=== PATIENT | male | born 1960 | race African-American/Black ===

== ENCOUNTER 2018-12-03 09:30 | Inpatient (IN) | payer OTHER ==
[2018-12-03 11:38] VITALS: BMI 28.2
--- NOTE | 2018-12-03 12:46 | HP ---
"COWS - Scale Resting Pulse: 0= [place] 80 or Below Sweatin= Chills/Flushing Restless Observation: 1= Difficult to Sit Still Pupil Size: 0= Normal to Room Light Bone or Joint Aches: 2= Severe Diffuse Aches Runny Nose/ Eye Tearin= Runny Nose/Eyes GI Upset > 30mins: 2= Nausea/Diarrhea Tremor Observation: 0= None Yawning Observation: 0= None Anxiety or Irritability: 2=Irritable/Anxious Goose Flesh Skin: 0=Smooth Skin COWS Score: 10 CIWA Score Nausea/Vomitin-Mild Nausea/No Vomiting Muscle Tremors: None Anxiety: 2 Agitation: 2 Paroxysmal Sweats: 1-Minimal Palms Moist Orientation: 1-Uncertain about Date Tacttile Disturbances: 1-Very Mild Itch/Numbness Auditory Disturbances: 2-Mild Harshness/Frighten Visual Disturbances: 2-Mild Sensitivity Headache: 2-Mild CIWA-Ar Total Score: 14 - Admission Criteria OASAS Guidelines: Admission for Medically Managed Detox: Requires at least one of the followin. CIWA greater than 12 2. Seizures within the past 24 hours 3. Delirium tremens within the past 24 hours 4. Hallucinations within the past 24 hours 5. Acute intervention needed for co occurring medical disorder 6. Acute intervention needed for co occurring psychiatric disorder 7. Severe withdrawal that cannot be handled at a lower level of care (continued vomiting, continued diarrhea, abnormal vital signs) requiring intravenous medication and/or fluids 8. Admission ROS [facility] Allergies/Adverse Reactions: Allergies Allergy/AdvReac Type Severity Reaction Status Date / Time No Known Drug Allergies Allergy Verified 12/03/18 13:32 pork derived (porcine) AdvReac Severe Vomiting Verified 12/03/18 11:30 History of Present Illness: pt here requesting detox from etoh use , reports 1.5 pints-2 pints/day since 10 years ago , reports headache if not drinking, slight tremors and diarrhea, latest use this morning , current symptoms as above , most recent detox 1 mo ago @ [facility] , longest sobriety 2 months . cannabis- daily since age 12 cocaine - daily since age 17 , currently 2-3 gr/day via inhalation heroin : 6-7 bags via inhalation , first age of use 14 , latest use this morning , OD 1 mo ago , [place]arcan [place]standers [place] . tobacco : denies denies other illicits PMHX : hep C dx 1989 no tx PSHX : denies PSych : depression , denies IS / HI SHX : lives in alf , finances habit through SSI for , denies legal issues . This report was requested by: Evi Ferguson | Reference #: [id number] Others' Prescriptions Patient Name: Smith Dalton Date: 1960 Address: [place] [address] Sex: Male Rx Written Rx Dispensed Drug Quantity Days Supply Prescriber Name 03/28/2018 03/29/2018 chlordiazepoxide 25 mg capsule 8 2 Efra Gamez Exam Limitations: Clinical Condition - Ebola screening Have you traveled outside of the country in the last 21 days: No (N) Have you had contact with anyone from an Ebola affected area: No Do you have a fever: No - Review of Systems Constitutional: See HPI EENT: reports: See HPI Respiratory: reports: SOB with Exertion (h/o emphysema no inhalers) Cardiac: reports: No Symptoms Reported GI: reports: See HPI : reports: No Symptoms Reported Musculoskeletal: reports: See HPI Integumentary: reports: No Symptoms Reported Neuro: reports: See HPI, Headache Endocrine: reports: No Symptoms Reported Psychiatric: reports: Anxious, Depressed Patient History - Smoking Cessation Smoking history: Never smoked - Substances abused Heroin Substance route: Inhalation Frequency: Daily Amount used: 6-7 bags Age of first use: 14 Date of last use: 12/03/18 Alcohol Substance route: Oral Frequency: Daily Amount used: 1 pint and half, 2 x 6packs Age of first use: 17 Date of last use: 12/03/18 Marijuana/Hashish Substance route: Smoking Frequency: Daily Amount used: 2 bags Age of first use: 12 Date of last use: 12/03/18 Cocaine Substance route: Inhalation Frequency: Daily Amount used: $100 Age of first use: 17 Date of last use: 12/03/18 Family Disease History - Family Disease History Family History: Denies Admission Physical Exam BHS - Vital Signs Vital Signs: Vital Signs - 24 hr 12/03/18 11:31 Temperature 97 F L Pulse Rate 66 Respiratory 16 Rate Blood Pressure 130/88 - Physical General Appearance: Yes: Mild Distress, Anxious HEENTM: Yes: EOMI, Hearing grossly Normal, Normocephalic, Normal Voice, Other ( poor dentition, many missing teeth) Respiratory: Yes: Chest Non-Tender, Lungs Clear, Normal Breath Sounds, No Respiratory Distress, No Accessory Muscle Use Neck: Yes: No masses,lesions,Nodules, Trachea in good position Cardiology: Yes: Regular Rhythm, Regular Rate, S1, S2 Abdominal: Yes: Non Tender, Soft Back: Yes: Normal Inspection Musculoskeletal: Yes: Gait Steady Extremities: Yes: Normal Range of Motion, Non-Tender Neurological: Yes: Fully Oriented, Alert, Motor Strength 5/5 Integumentary: Yes: Warm - Diagnostic (1) Opioid use disorder Current Visit: Yes Status: Chronic (2) Alcohol use disorder Current Visit: Yes Status: Chronic (3) Cocaine dependence Current Visit: Yes Status: Chronic Qualifiers: Substance use status: uncomplicated Qualified Code(s): F14.20 - Cocaine dependence, uncomplicated (4) Cannabis dependence Current Visit: Yes Status: Chronic Breathalyzer - Breathalyzer Breathalyzer: 0 Urine Drug Screen - Test Device Lot number: [id number] Expiration date: 08/30/20 - Control Is test valid?: Yes - Results Drug screen NEGATIVE: No Urine drug screen results: THC-Marijuana, MARTHA-Cocaine, MOP-Opiates, BZO- Benzodiazepines Inpatient Rehab Admission - Rehab Decision to Admit Inpatient rehab admission?: No"
[2018-12-03] MEDS ORDERED: MAGNESIUM HYDROX 2400MG/30ML ORAL SUSPENSION 30 ML CUP PO PRN (13:12)
[2018-12-03] MEDS ORDERED: MAGNESIUM CITRATE 300 ML BOTTLE PO PRN (13:12)
[2018-12-03] MEDS ORDERED: hydrOXYzine PAMOATE 25 MG CAPSULE (FP) PO PRN (13:12)
[2018-12-03] MEDS ORDERED: MENTHOL/PHENOL 1 EACH UD MM PRN (13:12)
[2018-12-03] MEDS ORDERED: MAG HYDROX/AL HYDROX/SIMETH 30 ML UNIT-DOSE CUP PO PRN (13:12)
[2018-12-03] MEDS ORDERED: MELATONIN 5 MG TABLETS PO PRN (13:12)
[2018-12-03] MEDS ORDERED: IBUPROFEN 400 MG TABLET (FP) PO PRN (13:12)
[2018-12-03] MEDS ORDERED: BISMUTH SUBSALICYLATE 524 MG/30 ML UD PO PRN (13:12)
[2018-12-03] MEDS ORDERED: ACETAMINOPHEN 325 MG TABLET (FP) PO PRN ×2 (13:12)
[2018-12-03] MEDS ORDERED: cloNIDine HCL 0.1 MG TABLET PO PRN (13:14)
[2018-12-03] MEDS ORDERED: diazePAM 5 MG TABLET PO PRN (13:16)
[2018-12-03] MEDS ORDERED: METHADONE HCL 10 MG TABLET (FOR DETOX USE ONLY) PO ONE (14:00)
[2018-12-03] MEDS: diazePAM 5 MG TABLET PO SCH ×2 (14:34→22:17)
[2018-12-03] MEDS: THIAMINE HCL 100 MG TABLET (FP) PO SCH (22:17)
[2018-12-04] MEDS: diazePAM 5 MG TABLET PO SCH ×3 (05:14→22:07)
[2018-12-04] MEDS ORDERED: METHADONE HCL 5 MG TABLET (FOR DETOX USE ONLY) PO ONE (10:00)
--- NOTE | 2018-12-04 10:06 | EKG ---
Test Reason : Blood Pressure : / mmHG Vent. Rate : 056 BPM Atrial Rate : 056 BPM P-R Int : 180 ms QRS Dur : 092 ms QT Int : 442 ms P-R-T Axes : 064 040 042 degrees QTc Int : 426 ms SINUS BRADYCARDIA WITH SINUS ARRHYTHMIA OTHERWISE NORMAL ECG NO PREVIOUS ECGS AVAILABLE Confirmed by ROSA LYLES MD ([id number]) on 12/04/2018 10:06:05 AM Referred By: Confirmed By:ROSA LYLES MD
[2018-12-04] MEDS: PRENATAL VITAMINS W/ FOLIC ACID TABLET (FP) PO SCH (10:19)
[2018-12-04 12:22] LABS: HEMATOCRIT 39.9 % (35.4-49); MCHC 32.6 g/dl (32.0-35.9); MEAN PLT VOLUME 8.4 fl (7.5-11.1); PLATELET COUNT 241 K/MM3 (134-434); RBC 4.64 M/mm3 (4.00-5.60); RDW 14.6 % (11.9-15.9); WHITE BLOOD COUNT 5.1 K/mm3 (4.0-10.0)
[2018-12-04 12:27] LABS: ALBUMIN 3.8 g/dl (3.4-5.0); BILIRUBIN,TOTAL 0.4 mg/dL (0.2-1); BLOOD UREA NITROGEN 16.7 mg/dL (7-18); CALCIUM 9.2 mg/dL (8.5-10.1); CREATININE 0.9 mg/dL (0.55-1.3); POTASSIUM 4.4 mmol/L (3.5-5.1); TOT PROT 7.4 g/dl (6.4-8.2)
--- NOTE | 2018-12-04 14:26 | PN ---
S CIWA - CIWA Score Nausea/Vomitin-Mild Nausea/No Vomiting Muscle Tremors: 4-Moderate,w/Arms Extend Anxiety: 3 Agitation: 2 Paroxysmal Sweats: 2 Orientation: 0-Oriented Tacttile Disturbances: 0-None Auditory Disturbances: 0-None Visual Disturbances: 0-None Headache: 0-None Present CIWA-Ar Total Score: 12 S COWS - Scale Resting Pulse: 0= [place] 80 or Below Sweatin= Chills/Flushing Restless Observation: 0= Sits Still Pupil Size: 0= Normal to Room Light Bone or Joint Aches: 1= Mild Discomfort Runny Nose/ Eye Tearin= Nasal Congestion GI Upset > 30mins: 2= Nausea/Diarrhea Tremor Observation of Outstretched Hands: 2= Slight Tremor Visible Yawning Observation: 2= >3x During Session Anxiety or Irritability: 2=Irritable/Anxious Goose Flesh Skin: 0=Smooth Skin COWS Score: 11 S Progress Note (SOAP) Subjective: 58 years old male 1st admission since 2015 was admitted on 12/03/18 for alcohol and opiate withdrawal sx management doing well with valium and methadone detox regimen ate breakfast and lunch no trouble chewing and swallowing Objective: 12/04/18 14:30 Vital Signs Temperature 98.6 F 12/04/18 13:24 Pulse Rate 60 12/04/18 13:24 Respiratory Rate 20 12/04/18 13:24 Blood Pressure 101/70 12/04/18 13:24 O2 Sat by Pulse Oximetry (%) Laboratory Last Values WBC 5.1 K/mm3 (4.0-10.0) 12/04/18 09:30 RBC 4.64 M/mm3 (4.00-5.60) 12/04/18 09:30 Hgb 13.0 GM/dL (11.7-16.9) 12/04/18 09:30 Hct 39.9 % (35.4-49) 12/04/18 09:30 MCV 86.0 fl (80-96) 12/04/18 09:30 MCH 28.0 pg (25.7-33.7) 12/04/18 09:30 MCHC 32.6 g/dl (32.0-35.9) 12/04/18 09:30 RDW 14.6 % (11.9-15.9) 12/04/18 09:30 Plt Count 241 K/MM3 (134-434) 12/04/18 09:30 MPV 8.4 fl (7.5-11.1) 12/04/18 09:30 Sodium 136 mmol/L (136-145) 12/04/18 09:30 Potassium 4.4 mmol/L (3.5-5.1) 12/04/18 09:30 Chloride 100 mmol/L (98-107) 12/04/18 09:30 Carbon Dioxide 32 mmol/L (21-32) 12/04/18 09:30 Anion Gap 5 MMOL/L (8-16) L 12/04/18 09:30 BUN 16.7 mg/dL (7-18) 12/04/18 09:30 Creatinine 0.9 mg/dL (0.55-1.3) 12/04/18 09:30 Est GFR (CKD-EPI)AfAm 109.50 12/04/18 09:30 Est GFR (CKD-EPI)NonAf 94.48 12/04/18 09:30 Random Glucose 66 mg/dL (74-106) L 12/04/18 09:30 Calcium 9.2 mg/dL (8.5-10.1) 12/04/18 09:30 Total Bilirubin 0.4 mg/dL (0.2-1) 12/04/18 09:30 AST 59 U/L (15-37) H 12/04/18 09:30 ALT 75 U/L (13-61) H 12/04/18 09:30 Alkaline Phosphatase 65 U/L (45-117) 12/04/18 09:30 Total Protein 7.4 g/dl (6.4-8.2) 12/04/18 09:30 Albumin 3.8 g/dl (3.4-5.0) 12/04/18 09:30 RPR Titer Nonreactive (NONREACTIVE) 12/04/18 09:30 lab noted Assessment: 12/04/18 14:31 alcohol and opiate withdrawal sx alert oriented x 3 had diarrhea encourage oral fluid Plan: continue valium and methadone detox regimen
--- NOTE | 2018-12-04 16:46 | CONSULT ---
[facility] Psychiatric Consult - Data Date of interview: 12/04/18 Admission source: [facility] Identifying data: Readmission to [facility] for this 58 y/o AA male self- referred for detoxification (cocaine, heroin, cannabis, alcohol). Interviewed at [address] [place] [address]. Patient is single, no dependents, homeless, unemployed and supported on SSI benefits. Substance Abuse History: Discussed with patient. Confirmed substance use as reported in the following document : Smoking history: Never smoked. Substances abused. Heroin. Substance route: Inhalation. Frequency: Daily. Amount used: 6-7 bags. Age of first use: 14. Date of last use: 12/03/18. Alcohol. Substance route: Oral. Frequency: Daily. Amount used: 1 pint and half, 2 x 6packs. Age of first use: 17. Date of last use: 12/03/18. Marijuana/Hashish. Substance route: Smoking. Frequency: Daily. Amount used: 2 bags. Age of first use: 12. Date of last use: 12/03/18. Cocaine. Substance route: Inhalation. Frequency: Daily. Amount used: $100. Age of first use: 17. Date of last use: 12/03/18 Medical History: Medical profile is remarkable for hepatitis C, COPD and emphysema. Psychiatric History: No reported history of psychiatric hospitalizations. Patient indicates that he has been diagnosed in the past with MDD. Was prescribed seroquel and lurazidone. Mr Dalton has reportedly dropped out of psychiatric [facility] care for months. Has taken self off medications. Patient denies history of suicide attempts. Physical/Sexual Abuse/Trauma History: Patient denies. Additional Comment: Urine drug screen results: THC-Marijuana, MARTHA-Cocaine, MOP- Opiates, BZO-Benzodiazepines. Noted. Mental Status Exam - Mental Status Exam Alert and Oriented to: Time, Place, Person Cognitive Function: Good Patient Appearance: Well Groomed Mood: Nervous, Withdrawn Affect: Mood Congruent, Constricted Patient Behavior: Fatigued, Appropriate, Cooperative Speech Pattern: Clear Voice Loudness: Normal Thought Process: Goal Oriented Thought Disorder: Not Present Hallucinations: Denies Suicidal Ideation: Denies Homicidal Ideation: Denies Insight/Judgement: Poor Sleep: Well Appetite: Good Muscle strength/Tone: Normal Gait/Station: Normal Psychiatric Findings - Problem List ([place] 1, 2,3) (1) Alcohol use disorder Current Visit: Yes Status: Chronic (2) Opioid use disorder Current Visit: Yes Status: Chronic (3) Cannabis dependence Current Visit: Yes Status: Chronic (4) Cocaine dependence Current Visit: Yes Status: Chronic Qualifiers: Substance use status: uncomplicated Qualified Code(s): F14.20 - Cocaine dependence, uncomplicated (5) Substance induced mood disorder Current Visit: Yes Status: Chronic (6) Non-compliance Current Visit: Yes Status: Chronic Comment: Dropped out of OPD care. - Initial Treatment Plan Initial Treatment Plan: Psychoeducation. Sleep hygiene. Support. Detoxification. AA/NA meetings. Groups. Observation.
[2018-12-04] MEDS: THIAMINE HCL 100 MG TABLET (FP) PO SCH (22:07)
[2018-12-05] MEDS: diazePAM 5 MG TABLET PO SCH ×2 (05:45→17:02)
[2018-12-05] MEDS ORDERED: METHADONE HCL 10 MG TABLET (FOR DETOX USE ONLY) PO ONE (10:00)
[2018-12-05] MEDS: PRENATAL VITAMINS W/ FOLIC ACID TABLET (FP) PO SCH (10:06)
--- NOTE | 2018-12-05 17:30 | PN ---
[facility] CIWA - CIWA Score Nausea/Vomitin-No Nausea/No Vomiting Muscle Tremors: None Anxiety: 4-Mod. Anxious/Guarded Agitation: 0-Normal Activity Paroxysmal Sweats: No Perspiration Orientation: 0-Oriented Tacttile Disturbances: 0-None Auditory Disturbances: 0-None Visual Disturbances: 0-None Headache: 0-None Present CIWA-Ar Total Score: 4 S COWS - Scale Resting Pulse: 0= [place] 80 or Below Sweatin= No chills or Flushing Restless Observation: 0= Sits Still Pupil Size: 0= Normal to Room Light Bone or Joint Aches: 0= None Runny Nose/ Eye Tearin= None GI Upset > 30mins: 0= None Tremor Observation of Outstretched Hands: 0= None Yawning Observation: 0= None Anxiety or Irritability: 2=Irritable/Anxious Goose Flesh Skin: 0=Smooth Skin COWS Score: 2 S Progress Note (SOAP) Subjective: Patient anxious about Discharge Planning and aftercare. Patient denies any other current Withdrawal symptoms. Objective: PATIENT A & O X 3. IN NO ACUTE DISTRESS. 12/05/18 17:27 Vital Signs Temperature 98.2 F 12/05/18 13:49 Pulse Rate 55 L 12/05/18 13:49 Respiratory Rate 18 12/05/18 13:49 Blood Pressure 116/79 12/05/18 13:49 O2 Sat by Pulse Oximetry (%) Laboratory Tests 12/03/18 12/04/18 12/04/18 13:30 09:30 09:30 WBC 5.1 RBC 4.64 Hgb 13.0 Hct 39.9 MCV 86.0 MCH 28.0 MCHC 32.6 RDW 14.6 Plt Count 241 MPV 8.4 Sodium 136 Potassium 4.4 Chloride 100 Carbon Dioxide 32 Anion Gap 5 L BUN 16.7 Creatinine 0.9 Est GFR (CKD-EPI)AfAm 109.50 Est GFR (CKD-EPI)NonAf 94.48 Random Glucose 66 L Calcium 9.2 Total Bilirubin 0.4 AST 59 H ALT 75 H Alkaline Phosphatase 65 Total Protein 7.4 Albumin 3.8 RPR Titer TB (QFT) Incubation TB Test (QFT) Nil 0.02 TB Test (QFT) Mitogen >10.00 TB Test (QFT) Antigen 0.13 TB Test (QFT) Negative TB Positive Criteria 12/04/18 09:30 WBC RBC Hgb Hct MCV MCH MCHC RDW Plt Count MPV Sodium Potassium Chloride Carbon Dioxide Anion Gap BUN Creatinine Est GFR (CKD-EPI)AfAm Est GFR (CKD-EPI)NonAf Random Glucose Calcium Total Bilirubin AST ALT Alkaline Phosphatase Total Protein Albumin RPR Titer Nonreactive TB (QFT) Incubation TB Test (QFT) Nil TB Test (QFT) Mitogen TB Test (QFT) Antigen TB Test (QFT) TB Positive Criteria LABS NOTED. Assessment: 12/05/18 17:27 WITHDRAWAL SYMPTOMS. ELEVATED AST LEVEL. ELEVATED ALT LEVEL. 12/05/18 17:28 Plan: CONTINUE DETOX. PATIENT ADVISED TO CONSULT DETOX UNIT [employer] REGARDING AFTERCARE PLANNING. PATIENT VERBALIZED UNDERSTANDING OF RECOMMENDATION. PATIENT SCHEDULED FOR D/C FROM DETOX UNIT TOMORROW.
[2018-12-05] MEDS: THIAMINE HCL 100 MG TABLET (FP) PO SCH (21:31)
[2018-12-06] MEDS ORDERED: METHADONE HCL 5 MG TABLET (FOR DETOX USE ONLY) PO ONE (06:00)
[2018-12-06] MEDS ORDERED: diazePAM 5 MG TABLET PO ONE (06:00)
[2018-12-06 09:03] VITALS: BP 134/68; PULSE 80; TEMP 96.9
[2018-12-06] MEDS: PRENATAL VITAMINS W/ FOLIC ACID TABLET (FP) PO SCH (09:08)
--- NOTE | 2018-12-06 17:31 | DS ---
[facility] Detox Discharge Summary Admission Date: 12/03/18 Discharge Date: 12/06/18 - History Present History: Alcohol Dependence, Cannabis Dependence, Cocaine Dependence, Opioid Dependence Additional Comments: PATIENT GOING TO [facility] ([place], [place]) FOR AFTERCARE. PATIENT WAS DISCHARGED FROM DETOX UNIT IN STABLE MEDICAL CONDITION. Pertinent Past History: Depression, Hep C, Elevated AST Level, Elevated ALT Level. - Physical Exam Results Vital Signs: Vital Signs Temperature 96.9 F L 12/06/18 09:03 Pulse Rate 80 12/06/18 09:03 Respiratory Rate 18 12/06/18 09:03 Blood Pressure 134/68 12/06/18 09:03 O2 Sat by Pulse Oximetry (%) Pertinent Admission Physical Exam Findings: WITHDRAWAL SYMPTOMS. Laboratory Tests 12/03/18 12/04/18 12/04/18 13:30 09:30 09:30 WBC 5.1 RBC 4.64 Hgb 13.0 Hct 39.9 MCV 86.0 MCH 28.0 MCHC 32.6 RDW 14.6 Plt Count 241 MPV 8.4 Sodium 136 Potassium 4.4 Chloride 100 Carbon Dioxide 32 Anion Gap 5 L BUN 16.7 Creatinine 0.9 Est GFR (CKD-EPI)AfAm 109.50 Est GFR (CKD-EPI)NonAf 94.48 Random Glucose 66 L Calcium 9.2 Total Bilirubin 0.4 AST 59 H ALT 75 H Alkaline Phosphatase 65 Total Protein 7.4 Albumin 3.8 RPR Titer TB (QFT) Incubation TB Test (QFT) Nil 0.02 TB Test (QFT) Mitogen >10.00 TB Test (QFT) Antigen 0.13 TB Test (QFT) Negative TB Positive Criteria 12/04/18 09:30 WBC RBC Hgb Hct MCV MCH MCHC RDW Plt Count MPV Sodium Potassium Chloride Carbon Dioxide Anion Gap BUN Creatinine Est GFR (CKD-EPI)AfAm Est GFR (CKD-EPI)NonAf Random Glucose Calcium Total Bilirubin AST ALT Alkaline Phosphatase Total Protein Albumin RPR Titer Nonreactive TB (QFT) Incubation TB Test (QFT) Nil TB Test (QFT) Mitogen TB Test (QFT) Antigen TB Test (QFT) TB Positive Criteria LABS NOTED. - Treatment Hospital Course: Detox Protocol Followed, Detoxed Safely, Responded well, Discharged Condition Good, Rehab Referral Accepted Patient has Accepted a Rehab Referral to: [facility] ([place], [place]). - Medication Discharge Medications: Ambulatory Orders NK [No Known Home Medication] 12/03/18 - Diagnosis (1) Alcohol use disorder Status: Acute (2) Cannabis dependence Status: Acute (3) Cocaine dependence Status: Acute Qualifiers: Substance use status: uncomplicated Qualified Code(s): F14.20 - Cocaine dependence, uncomplicated (4) Non-compliance Status: Chronic (5) Opioid use disorder Status: Chronic (6) Substance induced mood disorder Status: Chronic - AMA Did Patient Leave Against Medical Advice: No COWS - Scale Resting Pulse: 0= [place] 80 or Below Sweatin= No chills or Flushing Restless Observation: 1= Difficult to Sit Still Pupil Size: 0= Normal to Room Light Bone or Joint Aches: 1= Mild Discomfort Runny Nose/ Eye Tearin= None GI Upset > 30mins: 0= None Tremor Observation: 0= None Yawning Observation: 1= 1-2x During Session Anxiety or Irritability: 2=Irritable/Anxious Goose Flesh Skin: 0=Smooth Skin COWS Score: 5 S CIWA - CIWA Score Nausea/Vomitin-No Nausea/No Vomiting Muscle Tremors: None Anxiety: 2 Agitation: 1-Slight > Activity Paroxysmal Sweats: No Perspiration Orientation: 0-Oriented Tacttile Disturbances: 0-None Auditory Disturbances: 0-None Visual Disturbances: 0-None Headache: 0-None Present CIWA-Ar Total Score: 3
== END 2018-12-06 09:05 | disposition home or self-care (01) | DRG 773 ==
LOC: YASAS 09:30 → Y3N 13:29
PROVIDERS: ADMIT Surgery; ATTEND Surgery
PROC: HZ2ZZZZ Detoxification Services for Substance Abuse Treatment (ICD-10-PCS; principal; 2018-12-03)
DX: F11.23 Opioid dependence with withdrawal (principal); F10.230 Alcohol dependence with withdrawal, uncomplicated; F14.20 Cocaine dependence, uncomplicated; F12.20 Cannabis dependence, uncomplicated; F19.24 Other psychoactive substance dependence with psychoactive substance-induced mood disorder; R74.0 Nonspecific elevation of levels of transaminase and lactic acid dehydrogenase [LDH]; J43.9 Emphysema, unspecified; Z91.19 Patient's noncompliance with other medical treatment and regimen; Z59.0 Homelessness
CPT/HCPCS: 36415; 80053; 85027; 86480; 86593; 93005; 93010

== ENCOUNTER 2019-04-04 14:47 | Inpatient (IN) | payer OTHER ==
[2019-04-04 15:57] VITALS: BMI 23.7
--- NOTE | 2019-04-04 17:39 | HP ---
COWS - Scale Resting Pulse: 0= [place] 80 or Below Sweatin= Beads of Sweat on Face Restless Observation: 0= Sits Still Pupil Size: 0= Normal to Room Light Bone or Joint Aches: 4=Acute Joint/Muscle Pain Runny Nose/ Eye Tearin= Runny Nose/Eyes GI Upset > 30mins: 0= None Tremor Observation: 0= None Yawning Observation: 2= >3x During Session Anxiety or Irritability: 2=Irritable/Anxious Goose Flesh Skin: 3=Piloerection COWS Score: 16 CIWA Score Nausea/Vomitin-No Nausea/No Vomiting Muscle Tremors: None Anxiety: 0-No Anxiety, at Ease Agitation: 4-Moderately Restless (irritbale) Paroxysmal Sweats: 4-Forehead w/Sweat Beads Orientation: 3-Disoriented Date>2 days Tacttile Disturbances: 0-None Auditory Disturbances: 0-None Visual Disturbances: 3-Moderate Sensitivity (lights) Headache: 3-Moderate CIWA-Ar Total Score: 17 - Admission Criteria OASAS Guidelines: Admission for Medically Managed Detox: Requires at least one of the followin. CIWA greater than 12 2. Seizures within the past 24 hours 3. Delirium tremens within the past 24 hours 4. Hallucinations within the past 24 hours 5. Acute intervention needed for co occurring medical disorder 6. Acute intervention needed for co occurring psychiatric disorder 7. Severe withdrawal that cannot be handled at a lower level of care (continued vomiting, continued diarrhea, abnormal vital signs) requiring intravenous medication and/or fluids 8. Patient presents the following: CIWA greater than 12 Admission Criteria Met: Admission criteria met Admitting History and Physical - Smoking History Smoking history: Never smoked Have you smoked in the past 12 months: No Admission ROS S - HPI Chief Complaint: here for alcohol and heroin detox. Allergies/Adverse Reactions: Allergies Allergy/AdvReac Type Severity Reaction Status Date / Time No Known Drug Allergies Allergy Verified 04/04/19 15:49 pork derived (porcine) AdvReac Severe Vomiting Verified 04/04/19 15:49 History of Present Illness: HERE FOR ALCOHOL HEROIN DETOX. CLIENT WAS REFERRED BY [facility] AFTER PRESENTING THERE FOR C/O FEELING DEPRESSED. DENIES SI/HI.DC PAPERS REVIEWED CLIENT WAS CLEARED BY PSYCH. IT IS NOTED FOR CLIENT TO CONT TO TAKE LITHIUM 300MG AND SEROQUEL 300MG. CLIENT REPORTS HE IS NON COMPLAINT. HE ALSO WAS AT [facility] FOR DETOX AND THEN REHAB 2 WEEKS AGO WHERE HE WAS STARTED ON STABILIZATION WITH METHADONE 20 MG. LDM 04/01 VERIFIED BY DIVERSIFIED [employer] WITH NURSE SABA FROM [facility]. CLIENT AMA FROM REHAB AND WAS NOT CONNECTED TO A PROGRAM. HE REPORTS RELAPSING RIGHT AFTER DC. USING HEROIN DAILY APPROX 10 BAGS VIA NASAL.LAST USE 1 DAY AGO. HE REPORTS DRINKING ABOUT 1 PINT AND A HALF DAILY WELL. 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 HX/O DRUG OVERDOSE X 3 LAST EPISODE 3 MONTHS AGO. DENIES HX/O SZ AND BLACK OUTS. DENIES ANY SIGNIFICANT PERIOD OF CLEAN TIME. HOMELESS, UNEMPLOYED, DENIES LEGALS Exam Limitations: No Limitations - Ebola screening Have you traveled outside of the country in the last 21 days: No Have you had contact with anyone from an Ebola affected area: No Have you been sick,other than usual withdrawal symptoms: No Do you have a fever: No - Review of Systems Constitutional: Chills, Malaise, Night Sweats, Changes in sleep, Unintentional Wgt. Loss EENT: reports: Dental Problems (MISSING TEETH) Respiratory: reports: Shortness of Breath (EMPHYSEMA) Cardiac: reports: No Symptoms Reported GI: reports: Poor Fluid Intake, Abdominal cramping : reports: Other (SLOW STREAM) Musculoskeletal: reports: Back Pain, Joint Pain Integumentary: reports: Sweating, Other (GOOS BUMPS) Neuro: reports: Headache, Dizziness Endocrine: reports: No Symptoms Reported Hematology: reports: No Symptoms Reported Psychiatric: reports: Orientated x3, Agitated (IRRITABLE), Anxious, Depressed ( DENIES SI) Other Systems: Reviewed and Negative Patient History - Patient Medical History Hx Anemia: No Hx Asthma: No Hx Chronic Obstructive Pulmonary Disease (COPD): Yes (EPHYSEMA) Hx Cancer: No Hx Cardiac Disorders: No Hx Congestive Heart Failure: No Hx Hypertension: No Hx Hypercholesterolemia: No Hx Pacemaker: No HX Cerebrovascular Accident: No Hx Seizures: No Hx Dementia: No Hx Diabetes: No Hx Gastrointestinal Disorders: No Hx Liver Disease: No Hx Genitourinary Disorders: No Hx Sexually Transmitted Disorders: No Hx Renal Disease (ESRD): No Hx Thyroid Disease: No Hx Human Immunodeficiency Virus (HIV): No Hx Hepatitis C: Yes (NO TXMENT) Hx Depression: Yes (NON COMPLIANT WITH MEDS) Hx Suicide Attempt: No Hx Bipolar Disorder: Yes Hx Schizophrenia: No Other Medical History: DENIES - Patient Surgical History Past Surgical History: Yes Other Surgical History: CRACKED SKULL REPAIR Anesthesia Reaction: No - PPD History Previous Implant?: Yes (TB GOLD 12/19 NEGATIVE) Documented Results: Negative w/proof PPD to be Administered?: No - Smoking Cessation Smoking history: Never smoked Have you smoked in the past 12 months: No Hx Chewing Tobacco Use: No Initiated information on smoking cessation: No - Substance & Tx. History Hx Alcohol Use: Yes Hx Substance Use: Yes Substance Use Type: Alcohol, Cocaine, Heroin Hx Substance Use Treatment: Yes ([facility]) - Substances abused Heroin Substance route: Inhalation Frequency: Daily Amount used: 10 BAGS Age of first use: 14 Date of last use: 04/02/19 Alcohol Substance route: Oral Frequency: Daily Amount used: 1 pint and half BACARDI, 2 x 6packs Age of first use: 17 Date of last use: 04/02/19 Marijuana/Hashish Substance route: Smoking Frequency: Daily Amount used: 2 bags Age of first use: 12 Date of last use: 04/02/19 Cocaine Substance route: Inhalation Frequency: Daily Amount used: $400/ 4 GRAMS Age of first use: 17 Date of last use: 04/02/19 Admission Physical Exam S - Vital Signs Vital Signs: Vital Signs - 24 hr 04/04/19 15:49 Temperature 98.2 F Pulse Rate 68 Respiratory 17 Rate Blood Pressure 110/71 - Physical General Appearance: Yes: Moderate Distress, Irritable, Anxious HEENTM: Yes: EOMI, Normocephalic, Normal Voice, CHRIS, Pharynx Normal, Rhinorrhea , Other (MISSING MOST OF HIS TEETH) Respiratory: Yes: Chest Non-Tender, Lungs Clear, Normal Breath Sounds, No Respiratory Distress, No Accessory Muscle Use Neck: Yes: No masses,lesions,Nodules, Supple, Trachea in good position Breast: Yes: Breasts Symetrical, Surgical Scar (RIGHT) Cardiology: Yes: Regular Rhythm, Regular Rate, S1, S2 Abdominal: Yes: Non Tender, Soft, Increased Bowel Sounds Genitourinary: Yes: Other (REPORTED SLOW STREAM) Back: Yes: Other (MULTIPLE SCRATCHES NOTED TO UPPER BACK) Musculoskeletal: Yes: Joint Stiffness (2/2 PAIN) Extremities: Yes: Normal Capillary Refill, Normal Inspection, Non-Tender, Other (LROM 2/2 PAIN) Neurological: Yes: Alert, Motor Strength 5/5, Confused (ABOUT DATE), Depressed Affect Integumentary: Yes: Clammy, Other (PILORECTION) Lymphatic: Yes: Within Normal Limits - Diagnostic (1) Alcohol dependence with withdrawal, uncomplicated Current Visit: Yes Status: Acute (2) Opioid dependence with withdrawal Current Visit: Yes Status: Acute (3) Cocaine dependence, uncomplicated Current Visit: Yes Status: Acute (4) Cannabis dependence, uncomplicated Current Visit: Yes Status: Acute (5) Homeless Current Visit: Yes Status: Suspected (6) Emphysema lung Current Visit: Yes Status: Chronic Qualifiers: Emphysema type: unspecified Qualified Code(s): J43.9 - Emphysema, unspecified (7) HCV (hepatitis C virus) Current Visit: Yes Status: Chronic Qualifiers: Viral hepatitis chronicity: chronic (8) Depressed affect Current Visit: Yes Status: Acute (9) Non-compliance Current Visit: Yes Status: Chronic Comment: Dropped out of OPD care./ NON COMPLIANT WITH MEDICATION (10) Substance induced mood disorder Current Visit: Yes Status: Suspected Comment: DEPRESSION/ BIPOLAR Cleared for Admission S - Detox or Rehab [facility] Level of Care: Medically Managed Detox Regimen/Protocol: Methadone/Librium Claeared for Rehab Admission: No Breathalyzer - Breathalyzer Breathalyzer: 0 Urine Drug Screen - Test Device Lot number: [id number] Expiration date: 10/30/20 - Control Is test valid?: Yes - Results Drug screen NEGATIVE: No Urine drug screen results: THC-Marijuana, MARTHA-Cocaine, FEN-Fentanyl, MOP-Opiates , MTD-Methadone, BZO-Benzodiazepines Inpatient Rehab Admission - Rehab Decision to Admit Inpatient rehab admission?: No
[2019-04-04] MEDS ORDERED: chlordiazePOXIDE HCL 10 MG CAPSULE PO PRN (17:47)
[2019-04-04] MEDS ORDERED: P-EPHED 60MG/TRIPROLIDI 2.5MG TABLET PO PRN (17:47)
[2019-04-04] MEDS ORDERED: METHADONE HCL 10 MG TABLET (FOR DETOX USE ONLY) PO ONE (17:47)
[2019-04-04] MEDS ORDERED: BISMUTH SUBSALICYLATE 524 MG/30 ML UD PO PRN (17:47)
[2019-04-04] MEDS ORDERED: IBUPROFEN 400 MG TABLET (FP) PO PRN (17:47)
[2019-04-04] MEDS ORDERED: MENTHOL/PHENOL 1 EACH UD MM PRN (17:47)
[2019-04-04] MEDS ORDERED: ONDANSETRON *ODT* 4 MG TABLET SL PRN (17:47)
[2019-04-04] MEDS ORDERED: NALOXONE HCL 0.4 MG/ML VIAL IM PRN (17:47)
[2019-04-04] MEDS ORDERED: MAGNESIUM HYDROX 2400MG/30ML ORAL SUSPENSION 30 ML CUP PO PRN (17:47)
[2019-04-04] MEDS ORDERED: DICYCLOMINE HCL 10 MG CAPSULE PO PRN (17:47)
[2019-04-04] MEDS ORDERED: hydrOXYzine PAMOATE 25 MG CAPSULE (FP) PO PRN (17:47)
[2019-04-04] MEDS ORDERED: guaiFENesin 200 MG/10 ML 10 ML UNIT-DOSE CUPS PO PRN (17:47)
[2019-04-04] MEDS ORDERED: cloNIDine HCL 0.1 MG TABLET PO PRN (17:47)
[2019-04-04] MEDS ORDERED: MAGNESIUM CITRATE 300 ML BOTTLE PO PRN (17:47)
[2019-04-04] MEDS ORDERED: MAG HYDROX/AL HYDROX/SIMETH 30 ML UNIT-DOSE CUP PO PRN (17:47)
[2019-04-04] MEDS ORDERED: ACETAMINOPHEN 325 MG TABLET (FP) PO PRN ×2 (17:47)
[2019-04-04] MEDS: chlordiazePOXIDE HCL 25 MG CAPSULE PO SCH (22:34)
[2019-04-04] MEDS: THIAMINE HCL 100 MG TABLET (FP) PO SCH (22:34)
[2019-04-04] MEDS: MELATONIN 5 MG TABLETS PO PRN (22:36)
[2019-04-04] MEDS: METHOCARBAMOL 500 MG TABLET PO PRN (22:36)
[2019-04-05] MEDS: chlordiazePOXIDE HCL 25 MG CAPSULE PO SCH ×3 (05:09→22:36)
[2019-04-05] MEDS ORDERED: METHADONE HCL 10 MG TABLET (FOR DETOX USE ONLY) ONE (09:18)
[2019-04-05] MEDS ORDERED: METHADONE HCL 5 MG TABLET (FOR DETOX USE ONLY) ONE (09:19)
[2019-04-05 09:56] LABS: HEMATOCRIT 36.2 % (35.4-49); HEMOGLOBIN 11.8 GM/dL (11.7-16.9); MCH 27.9 pg (25.7-33.7); MCHC 32.7 g/dl (32.0-35.9); MEAN CELL VOLUME 85.4 fl (80-96); MEAN PLT VOLUME 8.3 fl (7.5-11.1); PLATELET COUNT 324 K/MM3 (134-434); RBC 4.24 M/mm3 (4.00-5.60); RDW 13.1 % (11.9-15.9); WHITE BLOOD COUNT 6.7 K/mm3 (4.0-10.0)
[2019-04-05] MEDS ORDERED: METHADONE (DETOX) 20 MG, METHADONE (DETOX) 5 MG PO ONE (10:00)
[2019-04-05 10:08] LABS: BILIRUBIN,TOTAL 0.3 mg/dL (0.2-1); BLOOD UREA NITROGEN 14.5 mg/dL (7-18); CALCIUM 8.2 mg/dL (8.5-10.1); CREATININE 0.8 mg/dL (0.55-1.3); POTASSIUM 3.5 mmol/L (3.5-5.1); TOT PROT 6.4 g/dl (6.4-8.2)
--- NOTE | 2019-04-05 10:20 | PN ---
S CIWA - CIWA Score Nausea/Vomitin-No Nausea/No Vomiting Muscle Tremors: 2 Anxiety: 3 Agitation: 2 Paroxysmal Sweats: 3 Orientation: 0-Oriented Tacttile Disturbances: 0-None Auditory Disturbances: 0-None Visual Disturbances: 0-None Headache: 2-Mild CIWA-Ar Total Score: 12 BHS COWS - Scale Resting Pulse: 0= [place] 80 or Below Sweatin= Beads of Sweat on Face Restless Observation: 1= Difficult to Sit Still Pupil Size: 0= Normal to Room Light Bone or Joint Aches: 2= Severe Diffuse Aches Runny Nose/ Eye Tearin= None GI Upset > 30mins: 0= None Tremor Observation of Outstretched Hands: 2= Slight Tremor Visible Yawning Observation: 1= 1-2x During Session Anxiety or Irritability: 2=Irritable/Anxious Goose Flesh Skin: 0=Smooth Skin COWS Score: 11 S Progress Note (SOAP) Subjective: c/o sweats, anxiety, chills, muscle aches, and headache. Objective: 04/05/19 10:17 Vital Signs 04/05/19 04/05/19 05:55 09:07 Temperature 97.5 F L 97.7 F Pulse Rate 55 L 70 Respiratory 18 20 Rate Blood Pressure 93/61 93/61 Laboratory Last Values WBC 6.7 K/mm3 (4.0-10.0) 04/05/19 07:20 RBC 4.24 M/mm3 (4.00-5.60) 04/05/19 07:20 Hgb 11.8 GM/dL (11.7-16.9) 04/05/19 07:20 Hct 36.2 % (35.4-49) 04/05/19 07:20 MCV 85.4 fl (80-96) 04/05/19 07:20 MCH 27.9 pg (25.7-33.7) 04/05/19 07:20 MCHC 32.7 g/dl (32.0-35.9) 04/05/19 07:20 RDW 13.1 % (11.9-15.9) D 04/05/19 07:20 Plt Count 324 K/MM3 (134-434) D 04/05/19 07:20 MPV 8.3 fl (7.5-11.1) 04/05/19 07:20 Sodium 141 mmol/L (136-145) 04/05/19 07:20 Potassium 3.5 mmol/L (3.5-5.1) 04/05/19 07:20 Chloride 104 mmol/L (98-107) 04/05/19 07:20 Carbon Dioxide 30 mmol/L (21-32) 04/05/19 07:20 Anion Gap 7 MMOL/L (8-16) L 04/05/19 07:20 BUN 14.5 mg/dL (7-18) 04/05/19 07:20 Creatinine 0.8 mg/dL (0.55-1.3) 04/05/19 07:20 Est GFR (CKD-EPI)AfAm 114.93 04/05/19 07:20 Est GFR (CKD-EPI)NonAf 99.16 04/05/19 07:20 Random Glucose 74 mg/dL (74-106) 04/05/19 07:20 Calcium 8.2 mg/dL (8.5-10.1) L 04/05/19 07:20 Total Bilirubin 0.3 mg/dL (0.2-1) 04/05/19 07:20 AST 92 U/L (15-37) H 04/05/19 07:20 ALT 58 U/L (13-61) 04/05/19 07:20 Alkaline Phosphatase 51 U/L (45-117) 04/05/19 07:20 Total Protein 6.4 g/dl (6.4-8.2) 04/05/19 07:20 Albumin 3.0 g/dl (3.4-5.0) L 04/05/19 07:20 Labs noted with elevated AST. 04/05/19 10:18 Assessment: 04/05/19 10:19 AOX3, in no acute respiratory distress. Full ROM, ambulating in the unit. Withdrawal symptoms. Elevated AST. Plan: continue detox. Increase fluids.
[2019-04-05] MEDS: PRENATAL VITAMINS W/ FOLIC ACID TABLET (FP) PO SCH (10:41)
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
[2019-04-05] MEDS: THIAMINE HCL 100 MG TABLET (FP) PO SCH (22:36)
--- NOTE | 2019-04-05 23:25 | EKG ---
Test Reason : Blood Pressure : / mmHG Vent. Rate : 058 BPM Atrial Rate : 058 BPM P-R Int : 178 ms QRS Dur : 092 ms QT Int : 474 ms P-R-T Axes : 071 000 046 degrees QTc Int : 465 ms SINUS BRADYCARDIA CANNOT RULE OUT ANTERIOR INFARCT , AGE UNDETERMINED ABNORMAL ECG WHEN COMPARED WITH ECG OF 03-DEC-2018 13:46, NO SIGNIFICANT CHANGE WAS FOUND Confirmed by SHAWN HERNANDEZ MD ([id number]) on 04/05/2019 11:25:03 PM Referred By: Confirmed By:SHAWN HERNANDEZ MD
[2019-04-06] MEDS: chlordiazePOXIDE 5 MG CAPSULE PO SCH ×3 (05:27→21:41)
--- NOTE | 2019-04-06 09:29 | PN ---
S CIWA - CIWA Score Nausea/Vomitin-Mild Nausea/No Vomiting Muscle Tremors: 2 Anxiety: 2 Agitation: 1-Slight > Activity Paroxysmal Sweats: 2 Orientation: 1-Uncertain about Date (date of week) Tacttile Disturbances: 0-None Auditory Disturbances: 0-None Visual Disturbances: 0-None Headache: 1-Very Mild CIWA-Ar Total Score: 10 BHS COWS - Scale Resting Pulse: 0= [place] 80 or Below Sweatin= Chills/Flushing Restless Observation: 0= Sits Still Pupil Size: 1= Pupils >than Normal Bone or Joint Aches: 2= Severe Diffuse Aches Runny Nose/ Eye Tearin= Nasal Congestion GI Upset > 30mins: 2= Nausea/Diarrhea Tremor Observation of Outstretched Hands: 2= Slight Tremor Visible Yawning Observation: 0= None Anxiety or Irritability: 2=Irritable/Anxious Goose Flesh Skin: 0=Smooth Skin COWS Score: 11 S Progress Note (SOAP) Subjective: 58 years old male admitted on 04/04/19 for alcohol and opiate withdrawal sx management treating with librium and methadone detox regimens feeling ok today body aches encourage tylenal prn as indicated Objective: 04/06/19 09:28 Vital Signs Temperature 98.0 F 04/06/19 09:10 Pulse Rate 56 L 04/06/19 09:10 Respiratory Rate 18 04/06/19 09:10 Blood Pressure 112/80 04/06/19 09:10 O2 Sat by Pulse Oximetry (%) Laboratory Last Values WBC 6.7 K/mm3 (4.0-10.0) 04/05/19 07:20 RBC 4.24 M/mm3 (4.00-5.60) 04/05/19 07:20 Hgb 11.8 GM/dL (11.7-16.9) 04/05/19 07:20 Hct 36.2 % (35.4-49) 04/05/19 07:20 MCV 85.4 fl (80-96) 04/05/19 07:20 MCH 27.9 pg (25.7-33.7) 04/05/19 07:20 MCHC 32.7 g/dl (32.0-35.9) 04/05/19 07:20 RDW 13.1 % (11.9-15.9) D 04/05/19 07:20 Plt Count 324 K/MM3 (134-434) D 04/05/19 07:20 MPV 8.3 fl (7.5-11.1) 04/05/19 07:20 Sodium 141 mmol/L (136-145) 04/05/19 07:20 Potassium 3.5 mmol/L (3.5-5.1) 04/05/19 07:20 Chloride 104 mmol/L (98-107) 04/05/19 07:20 Carbon Dioxide 30 mmol/L (21-32) 04/05/19 07:20 Anion Gap 7 MMOL/L (8-16) L 04/05/19 07:20 BUN 14.5 mg/dL (7-18) 04/05/19 07:20 Creatinine 0.8 mg/dL (0.55-1.3) 04/05/19 07:20 Est GFR (CKD-EPI)AfAm 114.93 04/05/19 07:20 Est GFR (CKD-EPI)NonAf 99.16 04/05/19 07:20 Random Glucose 74 mg/dL (74-106) 04/05/19 07:20 Calcium 8.2 mg/dL (8.5-10.1) L 04/05/19 07:20 Total Bilirubin 0.3 mg/dL (0.2-1) 04/05/19 07:20 AST 92 U/L (15-37) H 04/05/19 07:20 ALT 58 U/L (13-61) 04/05/19 07:20 Alkaline Phosphatase 51 U/L (45-117) 04/05/19 07:20 Total Protein 6.4 g/dl (6.4-8.2) 04/05/19 07:20 Albumin 3.0 g/dl (3.4-5.0) L 04/05/19 07:20 RPR Titer Nonreactive (NONREACTIVE) 04/05/19 07:20 lab noted Assessment: 04/06/19 09:28 alcohol and opiate withdrawal Plan: librium and methadone regimens
[2019-04-06] MEDS: PRENATAL VITAMINS W/ FOLIC ACID TABLET (FP) PO SCH (10:00)
[2019-04-06] MEDS ORDERED: METHADONE HCL 10 MG TABLET (FOR DETOX USE ONLY) PO ONE (10:00)
[2019-04-06] MEDS: METHOCARBAMOL 500 MG TABLET PO PRN (10:00)
[2019-04-06] MEDS: THIAMINE HCL 100 MG TABLET (FP) PO SCH (21:41)
[2019-04-07] MEDS ORDERED: chlordiazePOXIDE HCL 10 MG CAPSULE PO PRN
[2019-04-07] MEDS: chlordiazePOXIDE HCL 10 MG CAPSULE PO SCH ×3 (05:51→22:02)
[2019-04-07] MEDS ORDERED: METHADONE HCL 10 MG TABLET (FOR DETOX USE ONLY) ONE (09:00)
[2019-04-07] MEDS ORDERED: METHADONE HCL 5 MG TABLET (FOR DETOX USE ONLY) ONE (09:00)
[2019-04-07] MEDS ORDERED: METHADONE (DETOX) 10 MG, METHADONE (DETOX) 5 MG PO ONE (10:00)
[2019-04-07] MEDS: PRENATAL VITAMINS W/ FOLIC ACID TABLET (FP) PO SCH (10:08)
--- NOTE | 2019-04-07 10:59 | PN ---
S CIWA - CIWA Score Nausea/Vomitin-Mild Nausea/No Vomiting Muscle Tremors: 2 Anxiety: 2 Agitation: 2 Paroxysmal Sweats: 1-Minimal Palms Moist Orientation: 0-Oriented Tacttile Disturbances: 0-None Auditory Disturbances: 1-Very Mild Visual Disturbances: 0-None Headache: 0-None Present CIWA-Ar Total Score: 9 BHS COWS - Scale Resting Pulse: 0= [place] 80 or Below Sweatin= Chills/Flushing Restless Observation: 0= Sits Still Pupil Size: 1= Pupils >than Normal Bone or Joint Aches: 1= Mild Discomfort Runny Nose/ Eye Tearin= Nasal Congestion GI Upset > 30mins: 1= Stomach Cramp Tremor Observation of Outstretched Hands: 2= Slight Tremor Visible Yawning Observation: 1= 1-2x During Session Anxiety or Irritability: 1=Feels Anxious/Irritable Goose Flesh Skin: 0=Smooth Skin COWS Score: 9 BHS Progress Note (SOAP) Subjective: 58 years old male admitted on 04/04/19 for alcohol and opiate withdrawal sx management treating with librium and methadone detox regimens doing ok today less tremor mild joints pain social with peers in day room Objective: 04/07/19 10:58 Vital Signs Temperature 97 F L 04/07/19 09:02 Pulse Rate 80 04/07/19 09:02 Respiratory Rate 20 04/07/19 09:02 Blood Pressure 102/67 04/07/19 09:02 O2 Sat by Pulse Oximetry (%) Laboratory Last Values WBC 6.7 K/mm3 (4.0-10.0) 04/05/19 07:20 RBC 4.24 M/mm3 (4.00-5.60) 04/05/19 07:20 Hgb 11.8 GM/dL (11.7-16.9) 04/05/19 07:20 Hct 36.2 % (35.4-49) 04/05/19 07:20 MCV 85.4 fl (80-96) 04/05/19 07:20 MCH 27.9 pg (25.7-33.7) 04/05/19 07:20 MCHC 32.7 g/dl (32.0-35.9) 04/05/19 07:20 RDW 13.1 % (11.9-15.9) D 04/05/19 07:20 Plt Count 324 K/MM3 (134-434) D 04/05/19 07:20 MPV 8.3 fl (7.5-11.1) 04/05/19 07:20 Sodium 141 mmol/L (136-145) 04/05/19 07:20 Potassium 3.5 mmol/L (3.5-5.1) 04/05/19 07:20 Chloride 104 mmol/L (98-107) 04/05/19 07:20 Carbon Dioxide 30 mmol/L (21-32) 04/05/19 07:20 Anion Gap 7 MMOL/L (8-16) L 04/05/19 07:20 BUN 14.5 mg/dL (7-18) 04/05/19 07:20 Creatinine 0.8 mg/dL (0.55-1.3) 04/05/19 07:20 Est GFR (CKD-EPI)AfAm 114.93 04/05/19 07:20 Est GFR (CKD-EPI)NonAf 99.16 04/05/19 07:20 Random Glucose 74 mg/dL (74-106) 04/05/19 07:20 Calcium 8.2 mg/dL (8.5-10.1) L 04/05/19 07:20 Total Bilirubin 0.3 mg/dL (0.2-1) 04/05/19 07:20 AST 92 U/L (15-37) H 04/05/19 07:20 ALT 58 U/L (13-61) 04/05/19 07:20 Alkaline Phosphatase 51 U/L (45-117) 04/05/19 07:20 Total Protein 6.4 g/dl (6.4-8.2) 04/05/19 07:20 Albumin 3.0 g/dl (3.4-5.0) L 04/05/19 07:20 RPR Titer Nonreactive (NONREACTIVE) 04/05/19 07:20 lab noted Assessment: 04/07/19 10:59 alcohol and opiate withdrawal Plan: librium and methadone regimens
[2019-04-07] MEDS: THIAMINE HCL 100 MG TABLET (FP) PO SCH (22:02)
[2019-04-08] MEDS ORDERED: chlordiazePOXIDE HCL 10 MG CAPSULE PO ONE (05:00)
[2019-04-08] MEDS ORDERED: METHADONE HCL 10 MG TABLET (FOR DETOX USE ONLY) PO ONE (10:00)
[2019-04-08] MEDS: PRENATAL VITAMINS W/ FOLIC ACID TABLET (FP) PO SCH (10:02)
--- NOTE | 2019-04-08 10:04 | PN ---
S CIWA - CIWA Score Nausea/Vomitin-No Nausea/No Vomiting Muscle Tremors: 2 Anxiety: 1-Mildly Anxious Agitation: 1-Slight > Activity Paroxysmal Sweats: 1-Minimal Palms Moist Orientation: 0-Oriented Tacttile Disturbances: 0-None Auditory Disturbances: 0-None Visual Disturbances: 0-None Headache: 0-None Present CIWA-Ar Total Score: 5 BHS COWS - Scale Resting Pulse: 0= [place] 80 or Below Sweatin= No chills or Flushing Restless Observation: 0= Sits Still Pupil Size: 0= Normal to Room Light Bone or Joint Aches: 1= Mild Discomfort Runny Nose/ Eye Tearin= None GI Upset > 30mins: 1= Stomach Cramp Tremor Observation of Outstretched Hands: 1= Tremor Leroy, Not Seen Yawning Observation: 1= 1-2x During Session Anxiety or Irritability: 1=Feels Anxious/Irritable Goose Flesh Skin: 0=Smooth Skin COWS Score: 5 S Progress Note (SOAP) Subjective: 58 years old male admitted on 04/04/19 for alcohol and opiate withdrawal sx management treating with librium and methadone detox regimens feeling better today less tremor mild body aches encourage to consider medication assisted treatment program Objective: 04/08/19 10:03 Vital Signs Temperature 98.0 F 04/08/19 09:05 Pulse Rate 66 04/08/19 09:05 Respiratory Rate 18 04/08/19 09:05 Blood Pressure 108/76 04/08/19 09:05 O2 Sat by Pulse Oximetry (%) Laboratory Last Values WBC 6.7 K/mm3 (4.0-10.0) 04/05/19 07:20 RBC 4.24 M/mm3 (4.00-5.60) 04/05/19 07:20 Hgb 11.8 GM/dL (11.7-16.9) 04/05/19 07:20 Hct 36.2 % (35.4-49) 04/05/19 07:20 MCV 85.4 fl (80-96) 04/05/19 07:20 MCH 27.9 pg (25.7-33.7) 04/05/19 07:20 MCHC 32.7 g/dl (32.0-35.9) 04/05/19 07:20 RDW 13.1 % (11.9-15.9) D 04/05/19 07:20 Plt Count 324 K/MM3 (134-434) D 04/05/19 07:20 MPV 8.3 fl (7.5-11.1) 04/05/19 07:20 Sodium 141 mmol/L (136-145) 04/05/19 07:20 Potassium 3.5 mmol/L (3.5-5.1) 04/05/19 07:20 Chloride 104 mmol/L (98-107) 04/05/19 07:20 Carbon Dioxide 30 mmol/L (21-32) 04/05/19 07:20 Anion Gap 7 MMOL/L (8-16) L 04/05/19 07:20 BUN 14.5 mg/dL (7-18) 04/05/19 07:20 Creatinine 0.8 mg/dL (0.55-1.3) 04/05/19 07:20 Est GFR (CKD-EPI)AfAm 114.93 04/05/19 07:20 Est GFR (CKD-EPI)NonAf 99.16 04/05/19 07:20 Random Glucose 74 mg/dL (74-106) 04/05/19 07:20 Calcium 8.2 mg/dL (8.5-10.1) L 04/05/19 07:20 Total Bilirubin 0.3 mg/dL (0.2-1) 04/05/19 07:20 AST 92 U/L (15-37) H 04/05/19 07:20 ALT 58 U/L (13-61) 04/05/19 07:20 Alkaline Phosphatase 51 U/L (45-117) 04/05/19 07:20 Total Protein 6.4 g/dl (6.4-8.2) 04/05/19 07:20 Albumin 3.0 g/dl (3.4-5.0) L 04/05/19 07:20 RPR Titer Nonreactive (NONREACTIVE) 04/05/19 07:20 lab noted Assessment: 04/08/19 10:04 alcohol and opiate withdrawal Plan: librium and methadone regimens
[2019-04-08] MEDS: MELATONIN 5 MG TABLETS PO PRN (22:07)
[2019-04-08] MEDS: THIAMINE HCL 100 MG TABLET (FP) PO SCH (22:07)
[2019-04-09] MEDS ORDERED: METHADONE HCL 5 MG TABLET (FOR DETOX USE ONLY) PO ONE (06:00)
[2019-04-09 09:08] VITALS: BP 108/67; PULSE 77; TEMP 98.1
[2019-04-09] MEDS: PRENATAL VITAMINS W/ FOLIC ACID TABLET (FP) PO SCH (10:09)
[2019-04-09 10:40] LABS: EPI CELLS 2.9 /HPF (0-5/HPF); HYALINE CASTS 6 /lpf (0-8); PH,URINE 6.5 (5.0-8.0); URINE APPEARANCE CLEAR; URINE BACTERIA 15.6 /hpf (NEGATIVE); URINE BILIRUBIN NEGATIVE (NEGATIVE); URINE COLOR YELLOW; URINE GLUCOSE (UA) NEGATIVE (NEGATIVE); URINE KETONE NEGATIVE (NEGATIVE); URINE LEUK ESTERASE 3+ (NEGATIVE); URINE NITRITE NEGATIVE (NEGATIVE); URINE PROTEIN NEGATIVE (NEGATIVE); URINE RBC 6 /hpf (0-4); URINE UROBILINOGEN 0.2 mg/dL (0.2-1.0); URINE WBC 403 /hpf (0-5)
--- NOTE | 2019-04-09 14:24 | DS ---
[facility] Detox Discharge Summary Admission Date: 04/04/19 Discharge Date: 04/09/19 - History Present History: Alcohol Dependence, Opioid Dependence Additional Comments: 58 years old male admitted on 04/04/19 for alcohol and opiate withdrawal sx management treated with librium and methadone detox regimen patient tolerated well alert oriented x 3 seen by psychiatrist no medical intervention needed at this time respiratory clear lungs bilaterally on auscultation skin warm and dry abdomen soft no rebound tenderness - Physical Exam Results Vital Signs: Vital Signs Temperature 98.1 F 04/09/19 09:08 Pulse Rate 77 04/09/19 09:08 Respiratory Rate 18 04/09/19 09:08 Blood Pressure 108/67 04/09/19 09:08 O2 Sat by Pulse Oximetry (%) Pertinent Admission Physical Exam Findings: alcohol and opiate withdrawal Laboratory Last Values WBC 6.7 K/mm3 (4.0-10.0) 04/05/19 07:20 RBC 4.24 M/mm3 (4.00-5.60) 04/05/19 07:20 Hgb 11.8 GM/dL (11.7-16.9) 04/05/19 07:20 Hct 36.2 % (35.4-49) 04/05/19 07:20 MCV 85.4 fl (80-96) 04/05/19 07:20 MCH 27.9 pg (25.7-33.7) 04/05/19 07:20 MCHC 32.7 g/dl (32.0-35.9) 04/05/19 07:20 RDW 13.1 % (11.9-15.9) D 04/05/19 07:20 Plt Count 324 K/MM3 (134-434) D 04/05/19 07:20 MPV 8.3 fl (7.5-11.1) 04/05/19 07:20 Sodium 141 mmol/L (136-145) 04/05/19 07:20 Potassium 3.5 mmol/L (3.5-5.1) 04/05/19 07:20 Chloride 104 mmol/L (98-107) 04/05/19 07:20 Carbon Dioxide 30 mmol/L (21-32) 04/05/19 07:20 Anion Gap 7 MMOL/L (8-16) L 04/05/19 07:20 BUN 14.5 mg/dL (7-18) 04/05/19 07:20 Creatinine 0.8 mg/dL (0.55-1.3) 04/05/19 07:20 Est GFR (CKD-EPI)AfAm 114.93 04/05/19 07:20 Est GFR (CKD-EPI)NonAf 99.16 04/05/19 07:20 Random Glucose 74 mg/dL (74-106) 04/05/19 07:20 Calcium 8.2 mg/dL (8.5-10.1) L 04/05/19 07:20 Total Bilirubin 0.3 mg/dL (0.2-1) 04/05/19 07:20 AST 92 U/L (15-37) H 04/05/19 07:20 ALT 58 U/L (13-61) 04/05/19 07:20 Alkaline Phosphatase 51 U/L (45-117) 04/05/19 07:20 Total Protein 6.4 g/dl (6.4-8.2) 04/05/19 07:20 Albumin 3.0 g/dl (3.4-5.0) L 04/05/19 07:20 Urine Color Yellow 04/09/19 08:00 Urine Appearance Clear 04/09/19 08:00 Urine pH 6.5 (5.0-8.0) 04/09/19 08:00 Ur Specific [place] 1.020 (1.010-1.035) 04/09/19 08:00 Urine Protein Negative (NEGATIVE) 04/09/19 08:00 Urine Glucose (UA) Negative (NEGATIVE) 04/09/19 08:00 Urine Ketones Negative (NEGATIVE) 04/09/19 08:00 Urine Blood Negative (NEGATIVE) 04/09/19 08:00 Urine Nitrite Negative (NEGATIVE) 04/09/19 08:00 Urine Bilirubin Negative (NEGATIVE) 04/09/19 08:00 Urine Urobilinogen 0.2 mg/dL (0.2-1.0) 04/09/19 08:00 Ur Leukocyte Esterase 3+ (NEGATIVE) H 04/09/19 08:00 Urine WBC (Auto) 403 /hpf (0-5) 04/09/19 08:00 Urine RBC (Auto) 6 /hpf (0-4) 04/09/19 08:00 Urine Casts (Auto) 6 /lpf (0-8) 04/09/19 08:00 U Epithel Cells (Auto) 2.9 /HPF (0-5/HPF) 04/09/19 08:00 Urine Bacteria (Auto) 15.6 /hpf (NEGATIVE) 04/09/19 08:00 RPR Titer Nonreactive (NONREACTIVE) 04/05/19 07:20 lab noted uti bactrim ds bid x 7 days sent to [facility] due to the patient is going to [facility] - Treatment Hospital Course: Detox Protocol Followed, Detoxed Safely, Responded well, Discharged Condition Good, Rehab Referral Accepted Patient has Accepted a Rehab Referral to: [facility] - Medication Discharge Medications: Ambulatory Orders Sulfamethoxazole/Trimethoprim [Bactrim Ds -] 1 tab PO BID #14 tablet 04/09/19 - Diagnosis (1) UTI (urinary tract infection) Status: Acute Qualifiers: Hematuria presence: without hematuria (2) Alcohol dependence with withdrawal, uncomplicated Status: Acute (3) Opioid dependence with withdrawal Status: Acute (4) HCV (hepatitis C virus) Status: Chronic Qualifiers: Viral hepatitis chronicity: chronic Hepatic coma status: without hepatic coma Qualified Code(s): B18.2 - Chronic viral hepatitis C (5) Substance induced mood disorder Status: Suspected - AMA Did Patient Leave Against Medical Advice: No CIWA Score - CIWA Score Nausea/Vomitin-No Nausea/No Vomiting Muscle Tremors: 1-None Visible, but [place] Anxiety: 0-No Anxiety, at Ease Agitation: 1-Slight > Activity Paroxysmal Sweats: No Perspiration Orientation: 0-Oriented Tacttile Disturbances: 0-None Auditory Disturbances: 0-None Visual Disturbances: 0-None Headache: 0-None Present CIWA-Ar Total Score: 2 COWS (PN) - Opiate Withdrawal Resting Pulse: 0= [place] 80 or Below Sweatin= Chills/Flushing Restless Observation: 0= Sits Still Pupil Size: 0= Normal to Room Light Bone or Joint Aches: 0= None Runny Nose/ Eye Tearin= None GI Upset > 30mins: 0= None Tremor Observation of Outstretched Hands: 1= Tremor [place], Not Seen Yawning Observation: 0= None Anxiety or Irritability: 0= None Goose Flesh Skin: 0=Smooth Skin COWS Score: 2
== END 2019-04-09 13:23 | disposition other institution (70) | DRG 773 ==
LOC: YASAS 14:47 → Y3N 18:14
PROVIDERS: ADMIT Allergy & Immunology; ATTEND Allergy & Immunology
PROC: HZ2ZZZZ Detoxification Services for Substance Abuse Treatment (ICD-10-PCS; principal; 2019-04-04)
DX: F10.230 Alcohol dependence with withdrawal, uncomplicated (principal); F11.23 Opioid dependence with withdrawal; F14.20 Cocaine dependence, uncomplicated; F12.20 Cannabis dependence, uncomplicated; F19.24 Other psychoactive substance dependence with psychoactive substance-induced mood disorder; N39.0 Urinary tract infection, site not specified; J43.8 Other emphysema; B18.2 Chronic viral hepatitis C; R45.89 Other symptoms and signs involving emotional state; Z91.018 Allergy to other foods; Z91.14 Patient's other noncompliance with medication regimen; Z59.0 Homelessness
CPT/HCPCS: 36415; 80053; 81003; 85027; 86593; 93005; 93010; J0735

== ENCOUNTER 2019-05-17 11:37 | Inpatient (IN) | payer OTHER ==
--- NOTE | 2019-05-17 13:37 | BHS.RME ---
Substance Use & Tx History - Substance Use History Opiates (Heroin) Substance amount: 10 bags Frequency of use: Daily Substance route: Inhalation (ex: sniffing or snorting) Date of Last Use: 05/16/19 Alcohol Substance amount: 2pints of vodka Frequency of use: Daily Substance route: Oral Date of Last Use: 05/16/19 Cocaine (Crack) Substance amount: 200$ Frequency of use: Daily Substance route: Inhalation (ex: sniffing or snorting), Smoking Date of Last Use: 05/17/19 Cannabis (Synthetic) Substance amount: 20$ Frequency of use: Daily Substance route: Smoking Date of Last Use: 05/15/19 - Last Treatment Date of last treatment: 04/04/2019 to Where was last treatment: Detox ([facility]) Physical/Psych/Mental Status - Behavior General Behavior: Increased activity (restlessness, agitation) Eye Contact: Normal - Cooperativeness Cooperativeness: Reluctant - Thinking Thought Processes: Logical Thought content: Future oriented - Physical Health Problems Is patient presently having any pain?: No Does patient presently have any injuries (include location): No Does patient currently have a fever: No COWS - Scale Resting Pulse: 0= [place] 80 or Below Sweatin= Chills/Flushing Restless Observation: 1= Difficult to Sit Still Pupil Size: 1= Pupils >than Normal Bone or Joint Aches: 2= Severe Diffuse Aches Runny Nose/ Eye Tearin= Runny Nose/Eyes GI Upset > 30mins: 2= Nausea/Diarrhea Tremor Observation: 2= Slight Tremor Visible Yawning Observation: 2= >3x During Session Anxiety or Irritability: 2=Irritable/Anxious Goose Flesh Skin: 0=Smooth Skin COWS Score: 15 CIWA Nausea/Vomitin Muscle Tremors: 2 Anxiety: 3 Agitation: 3 Paroxysmal Sweats: 1-Minimal Palms Moist Orientation: 0-Oriented Tacttile Disturbances: 1-Very Mild Itch/Numbness Auditory Disturbances: 0-None Visual Disturbances: 0-None Headache: 2-Mild (this 58 years old male with heroin,cocaine marijuana and annabis dependence,seeking detox,seeking detox,depession) CIWA-Ar Total Score: 15
[2019-05-17 16:52] VITALS: BMI 25.1
--- NOTE | 2019-05-17 17:12 | HP ---
CIWA Score Nausea/Vomitin Muscle Tremors: 2 Anxiety: 3 Agitation: 3 Paroxysmal Sweats: 1-Minimal Palms Moist Orientation: 0-Oriented Tacttile Disturbances: 1-Very Mild Itch/Numbness Auditory Disturbances: 0-None Visual Disturbances: 0-None Headache: 2-Mild (this 58 years old male with heroin,cocaine marijuana and annabis dependence,seeking detox,seeking detox,depession) CIWA-Ar Total Score: 15 - Admission Criteria [facility]ASAS Guidelines: Admission for Medically Managed Detox: Requires at least one of the followin. CIWA greater than 12 2. Seizures within the past 24 hours 3. Delirium tremens within the past 24 hours 4. Hallucinations within the past 24 hours 5. Acute intervention needed for co occurring medical disorder 6. Acute intervention needed for co occurring psychiatric disorder 7. Severe withdrawal that cannot be handled at a lower level of care (continued vomiting, continued diarrhea, abnormal vital signs) requiring intravenous medication and/or fluids 8. Admitting History and Physical - Admission Chief Complaint: i need help to stop drinking alcoohol,coccaine,hroin abused History of Present Illness: this 58 years old male with alcohol ,cocaine dependence,heroin abused,seeking detox, last detox 04/04/19 to 04/09/19 multiple admissionin detox History Source: Patient Limitations to Obtaining History: No Limitations - Past Surgical History Past Surgical History: Yes: None - Smoking History Smoking history: Never smoked Have you smoked in the past 12 months: No - Alcohol/Substance Use Hx Alcohol Use: Yes History of Substance Use: reports: Cocaine - Social History Usual Living Arrangement: Yes: Other (homeless) Occupation: unemployed History of Recent Travel: No Admission [facility] Chief Complaint: for inpatient detox from alcohol,cocaine,heroin abused Allergies/Adverse Reactions: Allergies Allergy/AdvReac Type Severity Reaction Status Date / Time No Known Drug Allergies Allergy Verified 05/17/19 16:48 pork derived (porcine) AdvReac Severe Vomiting Verified 05/17/19 16:48 History of Present Illness: this 58 years old male with alcohol and cocaine dependence,heroin abused, denied seizure denied syncope multiple admissions in detox.last 04/04/2019 to 04/09/2019 no significant period of sobriety Exam Limitations: No Limitations - Ebola screening Have you traveled outside of the country in the last 21 days: No - Review of Systems Constitutional: Loss of Appetite, Malaise, Night Sweats, Changes in sleep, Weakness EENT: reports: Tearing, Nose Congestion Respiratory: reports: No Symptoms reported Cardiac: reports: No Symptoms Reported GI: reports: Nausea, Poor Appetite, Abdominal cramping : reports: No Symptoms Reported Musculoskeletal: reports: Back Pain, Muscle Pain Integumentary: reports: Dryness Neuro: reports: Headache, Tremors Endocrine: reports: No Symptoms Reported Hematology: reports: No Symptoms Reported Psychiatric: reports: No Sypmtoms Reported, Judgement Intact, Mood/Affect Appropiate, Orientated x3 Other Systems: Reviewed and Negative Patient History - Patient Medical History Hx Anemia: No Hx Asthma: No Hx Chronic Obstructive Pulmonary Disease (COPD): Yes (EPHYSEMA) Hx Cancer: No Hx Cardiac Disorders: No Hx Congestive Heart Failure: No Hx Hypertension: No Hx Hypercholesterolemia: No Hx Pacemaker: No HX Cerebrovascular Accident: No Hx Seizures: No Hx Dementia: No Hx Diabetes: No Hx Gastrointestinal Disorders: No Hx Liver Disease: No Hx Genitourinary Disorders: No Hx Sexually Transmitted Disorders: No Hx Renal Disease (ESRD): No Hx Thyroid Disease: No Hx Human Immunodeficiency Virus (HIV): No Hx Hepatitis C: Yes (NO TXMENT) Hx Depression: Yes (NON COMPLIANT WITH MEDS) Hx Suicide Attempt: No Hx Bipolar Disorder: Yes (did not want to see psychitrist) Hx Schizophrenia: No Other Medical History: no suicidal,no homicidal - Patient Surgical History Past Surgical History: Yes Hx Neurologic Surgery: No Hx Cataract Extraction: No Hx Cardiac Surgery: No Hx Lung Surgery: No Hx Breast Surgery: No Hx Breast Biopsy: No Hx Abdominal Surgery: No Hx Appendectomy: No Hx Cholecystectomy: No Hx Genitourinary Surgery: No Hx Section: No Hx Orthopedic Surgery: No Other Surgical History: fx of skull,no surgery Anesthesia Reaction: No - PPD History Previous Implant?: Yes Documented Results: Positive w/o proof PPD to be Administered?: No - Smoking Cessation Smoking history: Never smoked Have you smoked in the past 12 months: No Hx Chewing Tobacco Use: No - Substance & Tx. History Hx Alcohol Use: Yes Hx Substance Use: Yes Substance Use Type: Alcohol, Cocaine, Heroin Hx Substance Use Treatment: Yes ([facility] to 04/09/19) - Substances abused Alcohol Substance route: Oral Frequency: Daily Amount used: 2 PINTS OF VODKA Age of first use: 14 Date of last use: 05/17/19 Heroin Substance route: Inhalation Frequency: Daily Amount used: 10 BAGS Age of first use: 12 Date of last use: 05/16/19 Cocaine Substance route: Inhalation Frequency: Daily Amount used: $200 Age of first use: 14 Date of last use: 05/16/19 Marijuana/Hashish Substance route: Smoking Frequency: 3-6 times per week Amount used: $20 Age of first use: 12 Date of last use: 05/15/19 Admission Physical Exam [facility] - Vital Signs Vital Signs: Vital Signs - 24 hr 05/17/19 16:47 Temperature 97.8 F Pulse Rate 69 Respiratory 16 Rate Blood Pressure 130/86 - Physical General Appearance: Yes: Moderate Distress, Tremorous, Irritable, Sweating, Anxious HEENTM: Yes: Normal ENT Inspection, CHRIS, Pharynx Normal Respiratory: Yes: Lungs Clear, Normal Breath Sounds, No Respiratory Distress Neck: Yes: Within Normal Limits, Supple, Trachea in good position Breast: Yes: Within Normal Limits, Axillae mass/lump present Cardiology: Yes: Regular Rhythm, Regular Rate, S1, S2 Abdominal: Yes: Within Normal Limits, Normal Bowel Sounds, Non Tender, Flat, Soft Genitourinary: Yes: Within Normal Limits Back: Yes: Normal Inspection, Muscle Spasm Musculoskeletal: Yes: full range of Motion, Back pain, Muscle Pain Extremities: Yes: Within Normal Limits, Normal Range of Motion, Tremors Neurological: Yes: grinding machine tender II-XII NML intact, Fully Oriented, Alert, Motor Strength 5/5 Integumentary: Yes: Dry Lymphatic: Yes: Within Normal Limits - Diagnostic (1) Heroin abuse Current Visit: Yes Status: Acute (2) Alcohol dependence with withdrawal, uncomplicated Current Visit: No Status: Acute (3) Cannabis dependence Current Visit: No Status: Acute (4) Cocaine dependence Current Visit: No Status: Acute Qualifiers: Substance use status: uncomplicated Qualified Code(s): F14.20 - Cocaine dependence, uncomplicated (5) Homeless Current Visit: No Status: Suspected Cleared for Admission [facility] - Detox or Rehab [facility] Level of Care: Medically Managed Detox Regimen/Protocol: Librium (urine for dug scrren showed negative for opiate ) Breathalyzer - Breathalyzer Breathalyzer: 0 Urine Drug Screen - Test Device Lot number: [id number] Expiration date: 10/30/20 - Control Is test valid?: Yes - Results Drug screen NEGATIVE: No Urine drug screen results: THC-Marijuana, MARTHA-Cocaine, FEN-Fentanyl, MOP-Opiates , MTD-Methadone, BZO-Benzodiazepines Inpatient Rehab Admission - Rehab Decision to Admit Inpatient rehab admission?: No
[2019-05-17] MEDS ORDERED: MENTHOL/PHENOL 1 EACH UD MM PRN (17:22)
[2019-05-17] MEDS ORDERED: METHOCARBAMOL 500 MG TABLET PO PRN (17:22)
[2019-05-17] MEDS ORDERED: MAGNESIUM CITRATE 300 ML BOTTLE PO PRN (17:22)
[2019-05-17] MEDS ORDERED: IBUPROFEN 400 MG TABLET (FP) PO PRN (17:22)
[2019-05-17] MEDS ORDERED: chlordiazePOXIDE HCL 25 MG CAPSULE PO PRN (17:22)
[2019-05-17] MEDS ORDERED: ACETAMINOPHEN 325 MG TABLET (FP) PO PRN ×2 (17:22)
[2019-05-17] MEDS ORDERED: MAG HYDROX/AL HYDROX/SIMETH 30 ML UNIT-DOSE CUP PO PRN (17:22)
[2019-05-17] MEDS ORDERED: MAGNESIUM HYDROX 2400MG/30ML ORAL SUSPENSION 30 ML CUP PO PRN (17:22)
[2019-05-17] MEDS ORDERED: BISMUTH SUBSALICYLATE 524 MG/30 ML UD PO PRN (17:22)
[2019-05-17] MEDS ORDERED: hydrOXYzine PAMOATE 25 MG CAPSULE (FP) PO PRN (17:22)
[2019-05-17] MEDS ORDERED: MELATONIN 5 MG TABLETS PO PRN (17:22)
[2019-05-17] MEDS: chlordiazePOXIDE HCL 25 MG CAPSULE PO SCH (22:22)
[2019-05-17] MEDS: THIAMINE HCL 100 MG TABLET (FP) PO SCH (22:22)
[2019-05-18] MEDS: chlordiazePOXIDE HCL 25 MG CAPSULE PO SCH ×4 (05:20→22:40)
[2019-05-18] MEDS: PRENATAL VITAMINS W/ FOLIC ACID TABLET (FP) PO SCH (10:24)
[2019-05-18 11:44] LABS: HEMATOCRIT 39.2 % (35.4-49); HEMOGLOBIN 12.8 GM/dL (11.7-16.9); MCHC 32.6 g/dl (32.0-35.9); MEAN CELL VOLUME 85.7 fl (80-96); MEAN PLT VOLUME 8.8 fl (7.5-11.1); PLATELET COUNT 255 K/MM3 (134-434); RBC 4.58 M/mm3 (4.00-5.60); RDW 14.4 % (11.9-15.9); WHITE BLOOD COUNT 4.5 K/mm3 (4.0-10.0)
--- NOTE | 2019-05-18 11:48 | PN ---
S CIWA - CIWA Score Nausea/Vomitin-Mild Nausea/No Vomiting Muscle Tremors: 4-Moderate,w/Arms Extend Anxiety: 3 Agitation: 0-Normal Activity Paroxysmal Sweats: 2 Orientation: 0-Oriented Tacttile Disturbances: 0-None Auditory Disturbances: 0-None Visual Disturbances: 1-Very Mild Sensitivity Headache: 2-Mild CIWA-Ar Total Score: 13 BHS COWS - Scale Resting Pulse: 0= [place] 80 or Below Sweatin= Chills/Flushing Restless Observation: 0= Sits Still Pupil Size: 1= Pupils >than Normal Bone or Joint Aches: 1= Mild Discomfort Runny Nose/ Eye Tearin= Nasal Congestion GI Upset > 30mins: 2= Nausea/Diarrhea Tremor Observation of Outstretched Hands: 2= Slight Tremor Visible Yawning Observation: 0= None Anxiety or Irritability: 2=Irritable/Anxious Goose Flesh Skin: 3=Piloe[place] COWS Score: 13 BHS Progress Note (SOAP) Subjective: 58 years old male admitted on 05/17/19 for alcohol and opiate withdrawal sx management treating with librum and methadone detox regiment reports inhale opioid substance requests methadone for withdrawal positive opiate Utox upon admission begin methadone detox regiment along with librum Objective: 05/18/19 11:50 Vital Signs Temperature 98.6 F 05/18/19 08:45 Pulse Rate 70 05/18/19 08:45 Respiratory Rate 18 05/18/19 08:45 Blood Pressure 100/66 05/18/19 08:45 O2 Sat by Pulse Oximetry (%) Laboratory Last Values WBC 4.5 K/mm3 (4.0-10.0) 05/18/19 07:25 RBC 4.58 M/mm3 (4.00-5.60) 05/18/19 07:25 Hgb 12.8 GM/dL (11.7-16.9) 05/18/19 07:25 Hct 39.2 % (35.4-49) 05/18/19 07:25 MCV 85.7 fl (80-96) 05/18/19 07:25 MCH 28.0 pg (25.7-33.7) 05/18/19 07:25 MCHC 32.6 g/dl (32.0-35.9) 02/16/20 07:25 RDW 14.4 % (11.9-15.9) 05/18/19 07:25 Plt Count 255 K/MM3 (134-434) D 05/18/19 07:25 MPV 8.8 fl (7.5-11.1) 05/18/19 07:25 lab noted Assessment: 05/18/19 11:51 alcohol and opiate withdrawal Plan: librium and methadone regiments
[2019-05-18 11:57] LABS: BILIRUBIN,TOTAL 0.5 mg/dL (0.2-1); BLOOD UREA NITROGEN 12.5 mg/dL (7-18); CALCIUM 8.7 mg/dL (8.5-10.1); CREATININE 0.8 mg/dL (0.55-1.3); TOT PROT 6.2 g/dl (6.4-8.2)
[2019-05-18] MEDS ORDERED: METHADONE (DETOX) 20 MG, METHADONE (DETOX) 5 MG PO ONE (12:00)
[2019-05-18] MEDS ORDERED: METHADONE HCL 10 MG TABLET (FOR DETOX USE ONLY) ONE (12:13)
[2019-05-18] MEDS ORDERED: METHADONE HCL 5 MG TABLET (FOR DETOX USE ONLY) ONE (12:13)
[2019-05-18] MEDS: THIAMINE HCL 100 MG TABLET (FP) PO SCH (22:40)
[2019-05-19] MEDS ORDERED: METHADONE HCL 10 MG TABLET (FOR DETOX USE ONLY) PO ONE (05:00)
[2019-05-19] MEDS: chlordiazePOXIDE HCL 25 MG CAPSULE PO SCH ×4 (05:17→22:30)
--- NOTE | 2019-05-19 09:37 | PN ---
S CIWA - CIWA Score Nausea/Vomitin-No Nausea/No Vomiting Muscle Tremors: 2 Anxiety: 2 Agitation: 0-Normal Activity Paroxysmal Sweats: 2 Orientation: 0-Oriented Tacttile Disturbances: 0-None Auditory Disturbances: 0-None Visual Disturbances: 2-Mild Sensitivity Headache: 1-Very Mild CIWA-Ar Total Score: 9 BHS COWS - Scale Resting Pulse: 0= [place] 80 or Below Sweatin= Chills/Flushing Restless Observation: 0= Sits Still Pupil Size: 1= Pupils >than Normal Bone or Joint Aches: 2= Severe Diffuse Aches Runny Nose/ Eye Tearin= None GI Upset > 30mins: 1= Stomach Cramp Tremor Observation of Outstretched Hands: 2= Slight Tremor Visible Yawning Observation: 0= None Anxiety or Irritability: 2=Irritable/Anxious Goose Flesh Skin: 0=Smooth Skin COWS Score: 9 S Progress Note (SOAP) Subjective: 58 years old male admitted on 05/17/19 for alcohol and opiate withdrawal sx management treating with librium and methadone detox regiments feeling ok today ate breakfast in day room social with peers in front of day room by the TV Mr Dalton discusses aftercare with staff prefers [facility] Objective: 05/19/19 09:38 Vital Signs Temperature 96.8 F L 05/19/19 08:50 Pulse Rate 63 05/19/19 08:50 Respiratory Rate 18 05/19/19 08:50 Blood Pressure 107/77 05/19/19 08:50 O2 Sat by Pulse Oximetry (%) Laboratory Last Values WBC 4.5 K/mm3 (4.0-10.0) 05/18/19 07:25 RBC 4.58 M/mm3 (4.00-5.60) 05/18/19 07:25 Hgb 12.8 GM/dL (11.7-16.9) 05/18/19 07:25 Hct 39.2 % (35.4-49) 05/18/19 07:25 MCV 85.7 fl (80-96) 05/18/19 07:25 MCH 28.0 pg (25.7-33.7) 05/18/19 07:25 MCHC 32.6 g/dl (32.0-35.9) 05/18/19 07:25 RDW 14.4 % (11.9-15.9) 05/18/19 07:25 Plt Count 255 K/MM3 (134-434) D 05/18/19 07:25 MPV 8.8 fl (7.5-11.1) 05/18/19 07:25 Sodium 141 mmol/L (136-145) 05/18/19 07:25 Potassium 4.0 mmol/L (3.5-5.1) 05/18/19 07:25 Chloride 107 mmol/L (98-107) 05/18/19 07:25 Carbon Dioxide 29 mmol/L (21-32) 05/18/19 07:25 Anion Gap 5 MMOL/L (8-16) L 05/18/19 07:25 BUN 12.5 mg/dL (7-18) 05/18/19 07:25 Creatinine 0.8 mg/dL (0.55-1.3) 05/18/19 07:25 Est GFR (CKD-EPI)AfAm 114.93 05/18/19 07:25 Est GFR (CKD-EPI)NonAf 99.16 05/18/19 07:25 Random Glucose 89 mg/dL (74-106) 05/18/19 07:25 Calcium 8.7 mg/dL (8.5-10.1) 05/18/19 07:25 Total Bilirubin 0.5 mg/dL (0.2-1) 05/18/19 07:25 AST 48 U/L (15-37) H 05/18/19 07:25 ALT 53 U/L (13-61) 05/18/19 07:25 Alkaline Phosphatase 58 U/L (45-117) 05/18/19 07:25 Total Protein 6.2 g/dl (6.4-8.2) L 05/18/19 07:25 Albumin 3.0 g/dl (3.4-5.0) L 05/18/19 07:25 RPR Titer Nonreactive (NONREACTIVE) 05/18/19 07:25 lab noted Assessment: 05/19/19 09:38 alcohol and opiate withdrawal Plan: librium and methadone regiments
[2019-05-19] MEDS: PRENATAL VITAMINS W/ FOLIC ACID TABLET (FP) PO SCH (10:08)
[2019-05-19] MEDS: THIAMINE HCL 100 MG TABLET (FP) PO SCH (21:49)
[2019-05-20] MEDS ORDERED: chlordiazePOXIDE HCL 10 MG CAPSULE PO PRN
[2019-05-20] MEDS ORDERED: METHADONE HCL 10 MG TABLET (FOR DETOX USE ONLY) PO ONE (05:00)
[2019-05-20] MEDS: chlordiazePOXIDE HCL 10 MG CAPSULE PO SCH ×2 (05:27→11:01)
[2019-05-20] MEDS: PRENATAL VITAMINS W/ FOLIC ACID TABLET (FP) PO SCH (11:01)
--- NOTE | 2019-05-20 11:20 | PN ---
[facility] CIWA - CIWA Score Nausea/Vomitin-Mild Nausea/No Vomiting Muscle Tremors: 2 Anxiety: 2 Agitation: 2 Paroxysmal Sweats: 1-Minimal Palms Moist Orientation: 0-Oriented Tacttile Disturbances: 0-None Auditory Disturbances: 0-None Visual Disturbances: 0-None Headache: 0-None Present CIWA-Ar Total Score: 8 BHS COWS - Scale Resting Pulse: 1= [place] 81-100 Sweatin= Chills/Flushing Restless Observation: 1= Difficult to Sit Still Pupil Size: 1= Pupils >than Normal Bone or Joint Aches: 1= Mild Discomfort Runny Nose/ Eye Tearin= Nasal Congestion GI Upset > 30mins: 1= Stomach Cramp Tremor Observation of Outstretched Hands: 1= Tremor [place], Not Seen Yawning Observation: 1= 1-2x During Session Anxiety or Irritability: 2=Irritable/Anxious Goose Flesh Skin: 0=Smooth Skin COWS Score: 11 S Progress Note (SOAP) Subjective: pt admitted for dual detox, pt states he did not receive the am dose of methadone O: Vital Signs - 24 hr 05/19/19 05/19/19 05/19/19 12:36 16:42 20:23 Temperature 96.9 F L 97.4 F L 97.6 F Pulse Rate 62 60 59 L Respiratory 18 18 16 Rate Blood Pressure 100/60 106/61 92/59 L 05/20/19 05/20/19 05/20/19 00:30 03:30 06:12 Temperature 97.4 F L Pulse Rate 64 Respiratory 18 18 18 Rate Blood Pressure 105/69 05/20/19 08:31 Temperature 97.4 F L Pulse Rate 61 Respiratory 18 Rate Blood Pressure 100/71 Laboratory Tests 05/18/19 05/18/19 05/18/19 07:25 07:25 07:25 WBC 4.5 RBC 4.58 Hgb 12.8 Hct 39.2 MCV 85.7 MCH 28.0 MCHC 32.6 RDW 14.4 Plt Count 255 D MPV 8.8 Sodium 141 Potassium 4.0 Chloride 107 Carbon Dioxide 29 Anion Gap 5 L BUN 12.5 Creatinine 0.8 Est GFR (CKD-EPI)AfAm 114.93 Est GFR (CKD-EPI)NonAf 99.16 Random Glucose 89 Calcium 8.7 Total Bilirubin 0.5 AST 48 H ALT 53 Alkaline Phosphatase 58 Total Protein 6.2 L Albumin 3.0 L RPR Titer Nonreactive a/p: continue dual detox protocols- according to [facility] pt rec'd methadone at 5:30 am. Pt also on librium detox protocol will change methadone schedule to 10am- d/w Soledad Holliday who wrote the initial order for 5am. pt has prn meds for symptom Rx
[2019-05-20 13:29] VITALS: BP 103/67; PULSE 60; TEMP 97.5
--- NOTE | 2019-05-20 18:52 | PN ---
[facility] Progress Note Note: informed by nursing that pt left AMA escorted by security did not want to speak with medical staff .
[2019-05-21] MEDS ORDERED: chlordiazePOXIDE HCL 10 MG CAPSULE PO SCH (05:00)
[2019-05-21] MEDS ORDERED: METHADONE HCL 10 MG TABLET (FOR DETOX USE ONLY) PO ONE ×2 (05:00→10:00)
[2019-05-22] MEDS ORDERED: METHADONE HCL 10 MG TABLET (FOR DETOX USE ONLY) PO ONE (05:00)
[2019-05-22] MEDS ORDERED: chlordiazePOXIDE HCL 10 MG CAPSULE PO ONE (05:00)
== END 2019-05-20 16:44 | disposition left against medical advice (07) | DRG 770 ==
LOC: YASAS 11:37 → Y3N 17:12
PROVIDERS: ADMIT Allergy & Immunology; ATTEND Allergy & Immunology
PROC: HZ2ZZZZ Detoxification Services for Substance Abuse Treatment (ICD-10-PCS; principal; 2019-05-17)
DX: F11.23 Opioid dependence with withdrawal (principal); F10.230 Alcohol dependence with withdrawal, uncomplicated; F14.20 Cocaine dependence, uncomplicated; F12.20 Cannabis dependence, uncomplicated; J43.9 Emphysema, unspecified; Z91.14 Patient's other noncompliance with medication regimen; Z91.018 Allergy to other foods; Z59.0 Homelessness
CPT/HCPCS: 36415; 80053; 85027; 86593

== ENCOUNTER 2019-06-05 15:25 | Inpatient (IN) | payer OTHER ==
[2019-06-05 18:45] VITALS: BMI 22.7
--- NOTE | 2019-06-05 19:39 | HP ---
COWS - Scale Resting Pulse: 1= [place] 81-100 Sweatin= Chills/Flushing Restless Observation: 0= Sits Still Pupil Size: 0= Normal to Room Light Bone or Joint Aches: 1= Mild Discomfort Runny Nose/ Eye Tearin= None GI Upset > 30mins: 2= Nausea/Diarrhea Tremor Observation: 0= None Yawning Observation: 1= 1-2x During Session Anxiety or Irritability: 1=Feels Anxious/Irritable Goose Flesh Skin: 0=Smooth Skin COWS Score: 7 CIWA Score Nausea/Vomitin Muscle Tremors: None Anxiety: 2 Agitation: 1-Slight > Activity Paroxysmal Sweats: 1-Minimal Palms Moist Orientation: 1-Uncertain about Date Tacttile Disturbances: 0-None Auditory Disturbances: 0-None Visual Disturbances: 2-Mild Sensitivity Headache: 0-None Present CIWA-Ar Total Score: 9 - Admission Criteria OASAS Guidelines: Admission for Medically Managed Detox: Requires at least one of the followin. CIWA greater than 12 2. Seizures within the past 24 hours 3. Delirium tremens within the past 24 hours 4. Hallucinations within the past 24 hours 5. Acute intervention needed for co occurring medical disorder 6. Acute intervention needed for co occurring psychiatric disorder 7. Severe withdrawal that cannot be handled at a lower level of care (continued vomiting, continued diarrhea, abnormal vital signs) requiring intravenous medication and/or fluids 8. Admitting History and Physical - Past Surgical History Past Surgical History: Yes: None - Smoking History Smoking history: Never smoked Have you smoked in the past 12 months: No - Alcohol/Substance Use Hx Alcohol Use: Yes History of Substance Use: reports: Cocaine - Social History Occupation: unemployed History of Recent Travel: No Admission [facility] Allergies/Adverse Reactions: Allergies Allergy/AdvReac Type Severity Reaction Status Date / Time No Known Drug Allergies Allergy Verified 06/05/19 20:30 pork derived (porcine) AdvReac Severe Vomiting Verified 06/05/19 20:30 History of Present Illness: 58 y.o. male requesting detox from etoh use , reports 2 pints/day since 10 years ago , reports headache if not drinking, latest use this morning , current symptoms as above , most recent detox " I don't remember " . Pt is poor historian , drowsy , falls asleep during interview and whilst standing . cannabis- daily since age 12 cocaine - daily since age 17 , currently 2-3 gr/day via inhalation heroin : latest use " at least 3 days " ago claims 10 bags via inhalation , first age of use 14 , claims he bought illicit methadone " 60's , 80's " . tobacco : denies PMHX : hep C dx 1989 no tx , emphysema PSHX : denies PSych : depression , denies SI / HI SHX : lives in half-way , finances habit through SSI for , denies legal issues . Exam Limitations: Clinical Condition, Intoxication - Review of Systems Constitutional: No Symptoms Reported EENT: reports: No Symptoms Reported Respiratory: reports: See HPI Cardiac: reports: No Symptoms Reported GI: reports: Diarrhea, Vomiting : reports: No Symptoms Reported Musculoskeletal: reports: See HPI Integumentary: reports: No Symptoms Reported Neuro: reports: See HPI Endocrine: reports: No Symptoms Reported Hematology: reports: No Symptoms Reported Psychiatric: reports: Anxious, Disorientated Patient History - Patient Medical History Hx Anemia: No Hx Asthma: No Hx Chronic Obstructive Pulmonary Disease (COPD): Yes (EPHYSEMA) Hx Cancer: No Hx Cardiac Disorders: No Hx Congestive Heart Failure: No Hx Hypertension: No Hx Hypercholesterolemia: No Hx Pacemaker: No HX Cerebrovascular Accident: No Hx Seizures: No Hx Dementia: No Hx Diabetes: No Hx Gastrointestinal Disorders: No Hx Liver Disease: No Hx Genitourinary Disorders: No Hx Sexually Transmitted Disorders: No Hx Renal Disease (ESRD): No Hx Thyroid Disease: No Hx Human Immunodeficiency Virus (HIV): No Hx Hepatitis C: Yes (NO TXMENT) Hx Depression: Yes (NON COMPLIANT WITH MEDS) Hx Suicide Attempt: No Hx Bipolar Disorder: Yes (did not want to see psychitrist) Hx Schizophrenia: No - Patient Surgical History Past Surgical History: Yes Hx Neurologic Surgery: No Hx Cataract Extraction: No Hx Cardiac Surgery: No Hx Lung Surgery: No Hx Breast Surgery: No Hx Breast Biopsy: No Hx Abdominal Surgery: No Hx Appendectomy: No Hx Cholecystectomy: No Hx Genitourinary Surgery: No Hx Section: No Hx Orthopedic Surgery: No Other Surgical History: fx of skull,no surgery Anesthesia Reaction: No - Smoking Cessation Smoking history: Never smoked Have you smoked in the past 12 months: No Hx Chewing Tobacco Use: No Initiated information on smoking cessation: No - Substances abused Alcohol Substance route: Oral Amount used: 2 PINTS Age of first use: 17 Date of last use: 06/04/19 Cocaine Substance route: Smoking Frequency: Daily Amount used: 3 GRAMS Age of first use: 14 Date of last use: 06/04/19 Heroin Other (specify): SNIFF Frequency: Daily Amount used: 10 BAGS Age of first use: 17 Date of last use: 06/04/19 Admission Physical Exam BHS - Vital Signs Vital Signs: Vital Signs - 24 hr 06/05/19 17:57 Temperature 97.8 F Pulse Rate 18 L Respiratory 89 H Rate Blood Pressure 113/67 - Physical General Appearance: Yes: Intoxicated, Irritable, Anxious HEENTM: Yes: EOMI, Hearing grossly Normal, Normocephalic, Normal Voice Respiratory: Yes: Chest Non-Tender, Lungs Clear, Normal Breath Sounds, No Respiratory Distress, No Accessory Muscle Use Neck: Yes: No masses,lesions,Nodules, Trachea in good position Cardiology: Yes: Regular Rhythm, Regular Rate, S1, S2 Abdominal: Yes: Non Tender, Soft Musculoskeletal: Yes: Other (staggering gait) Extremities: Yes: Normal Range of Motion, Tremors, Other (tender left anterior tibia w/ edema / deformity) Neurological: Yes: Disoriented, Other (falls asleep frequently during interview , awakened by verbal stimuli) Integumentary: Yes: Warm - Addiitonal Findings: sent to [facility] for left tib-fib XR rpeort to Dr Hernández. - Diagnostic (1) Methadone use disorder, mild, abuse Current Visit: Yes Status: Acute (2) Alcohol use disorder Current Visit: Yes Status: Chronic (3) Cannabis dependence Current Visit: Yes Status: Chronic (4) Cocaine dependence Current Visit: Yes Status: Chronic Qualifiers: Substance use status: uncomplicated Qualified Code(s): F14.20 - Cocaine dependence, uncomplicated Breathalyzer - Breathalyzer Breathalyzer: 0 Urine Drug Screen - Test Device Lot number: [id number] Expiration date: 03/01/21 - Control Is test valid?: Yes - Results Drug screen NEGATIVE: No Urine drug screen results: THC-Marijuana, MARTHA-Cocaine, MTD-Methadone, BAR- Barbiturates, BZO-Benzodiazepines Inpatient Rehab Admission - Rehab Decision to Admit Inpatient rehab admission?: No
[2019-06-05] MEDS ORDERED: MENTHOL/PHENOL 1 EACH UD MM PRN (20:01)
[2019-06-05] MEDS ORDERED: MELATONIN 5 MG TABLETS PO PRN (20:01)
[2019-06-05] MEDS ORDERED: MAGNESIUM HYDROX 2400MG/30ML ORAL SUSPENSION 30 ML CUP PO PRN (20:01)
[2019-06-05] MEDS ORDERED: MAGNESIUM CITRATE 300 ML BOTTLE PO PRN (20:01)
[2019-06-05] MEDS ORDERED: hydrOXYzine PAMOATE 25 MG CAPSULE (FP) PO PRN (20:01)
[2019-06-05] MEDS ORDERED: IBUPROFEN 400 MG TABLET (FP) PO PRN (20:01)
[2019-06-05] MEDS ORDERED: MAG HYDROX/AL HYDROX/SIMETH 30 ML UNIT-DOSE CUP PO PRN (20:01)
[2019-06-05] MEDS ORDERED: BISMUTH SUBSALICYLATE 524 MG/30 ML UD PO PRN (20:01)
[2019-06-05] MEDS ORDERED: NICOTINE POLACRILEX 2 MG GUM BUC PRN (20:01)
[2019-06-05] MEDS ORDERED: ACETAMINOPHEN 325 MG TABLET (FP) PO PRN ×2 (20:01)
[2019-06-06] MEDS ORDERED: cloNIDine HCL 0.1 MG TABLET PO PRN (00:21)
[2019-06-06] MEDS ORDERED: chlordiazePOXIDE HCL 10 MG CAPSULE PO PRN (00:21)
[2019-06-06] MEDS: THIAMINE HCL 100 MG TABLET (FP) PO SCH ×2 (00:42→22:15)
[2019-06-06] MEDS: chlordiazePOXIDE HCL 25 MG CAPSULE PO SCH ×3 (05:42→22:15)
--- NOTE | 2019-06-06 09:12 | PN ---
[facility] CIWA - CIWA Score Nausea/Vomitin-Mild Nausea/No Vomiting Muscle Tremors: 2 Anxiety: 2 Agitation: 2 Paroxysmal Sweats: 1-Minimal Palms Moist Orientation: 0-Oriented Tacttile Disturbances: 1-Very Mild Itch/Numbness Auditory Disturbances: 0-None Visual Disturbances: 0-None Headache: 2-Mild CIWA-Ar Total Score: 11 S COWS - Scale Resting Pulse: 0= [place] 80 or Below Sweatin= No chills or Flushing Restless Observation: 1= Difficult to Sit Still Pupil Size: 1= Pupils >than Normal Bone or Joint Aches: 1= Mild Discomfort Runny Nose/ Eye Tearin= Nasal Congestion GI Upset > 30mins: 1= Stomach Cramp Tremor Observation of Outstretched Hands: 2= Slight Tremor Visible Yawning Observation: 1= 1-2x During Session Anxiety or Irritability: 2=Irritable/Anxious Goose Flesh Skin: 0=Smooth Skin COWS Score: 10 S Progress Note (SOAP) Subjective: alert,irritable,anxious,interrupted sleep,tremor,aching pain,nausea Objective: 06/06/19 09:10 Vital Signs Temperature 97.9 F 06/06/19 06:17 Pulse Rate 48 L 06/06/19 06:17 Respiratory Rate 20 06/06/19 06:17 Blood Pressure 120/78 06/06/19 06:17 O2 Sat by Pulse Oximetry (%) 06/06/19 09:11 labs pending Assessment: 06/06/19 09:11 withdrawal symptom Plan: continue detox methadone and librium regimen
[2019-06-06] MEDS ORDERED: METHADONE HCL 10 MG TABLET (FOR DETOX USE ONLY) PO ONE (10:00)
[2019-06-06] MEDS: PRENATAL VITAMINS W/ FOLIC ACID TABLET (FP) PO SCH (10:34)
[2019-06-06 10:51] LABS: ALBUMIN 3.3 g/dl (3.4-5.0); BILIRUBIN,TOTAL 0.7 mg/dL (0.2-1); BLOOD UREA NITROGEN 17.2 mg/dL (7-18); CALCIUM 8.7 mg/dL (8.5-10.1); CREATININE 0.9 mg/dL (0.55-1.3); POTASSIUM 3.9 mmol/L (3.5-5.1); TOT PROT 6.7 g/dl (6.4-8.2)
[2019-06-07] MEDS: chlordiazePOXIDE 5 MG CAPSULE PO SCH ×3 (06:26→22:16)
--- NOTE | 2019-06-07 09:51 | PN ---
[facility] CIWA - CIWA Score Nausea/Vomitin-Mild Nausea/No Vomiting Muscle Tremors: 2 Anxiety: 2 Agitation: 2 Paroxysmal Sweats: No Perspiration Orientation: 0-Oriented Tacttile Disturbances: 1-Very Mild Itch/Numbness Auditory Disturbances: 0-None Visual Disturbances: 0-None Headache: 1-Very Mild CIWA-Ar Total Score: 9 BHS COWS - Scale Resting Pulse: 0= DC 80 or Below Sweatin= No chills or Flushing Restless Observation: 1= Difficult to Sit Still Pupil Size: 1= Pupils >than Normal Bone or Joint Aches: 1= Mild Discomfort Runny Nose/ Eye Tearin= Nasal Congestion GI Upset > 30mins: 1= Stomach Cramp Tremor Observation of Outstretched Hands: 2= Slight Tremor Visible Yawning Observation: 1= 1-2x During Session Anxiety or Irritability: 2=Irritable/Anxious Goose Flesh Skin: 0=Smooth Skin COWS Score: 10 S Progress Note (SOAP) Subjective: alert,irritable,anxious,interrupted sleep,tremor,pain in the body Objective: 06/07/19 09:46 Vital Signs Temperature 98.2 F 06/07/19 09:41 Pulse Rate 72 06/07/19 09:41 Respiratory Rate 19 06/07/19 09:41 Blood Pressure 108/66 06/07/19 09:41 O2 Sat by Pulse Oximetry (%) 06/07/19 09:47 Laboratory Last Values Sodium 141 mmol/L (136-145) 06/06/19 07:45 Potassium 3.9 mmol/L (3.5-5.1) 06/06/19 07:45 Chloride 108 mmol/L (98-107) H 06/06/19 07:45 Carbon Dioxide 26 mmol/L (21-32) 06/06/19 07:45 Anion Gap 7 MMOL/L (8-16) L 06/06/19 07:45 BUN 17.2 mg/dL (7-18) 06/06/19 07:45 Creatinine 0.9 mg/dL (0.55-1.3) 06/06/19 07:45 Est GFR (CKD-EPI)AfAm 109.50 06/06/19 07:45 Est GFR (CKD-EPI)NonAf 94.48 06/06/19 07:45 Random Glucose 97 mg/dL (74-106) 06/06/19 07:45 Calcium 8.7 mg/dL (8.5-10.1) 06/06/19 07:45 Total Bilirubin 0.7 mg/dL (0.2-1) 06/06/19 07:45 AST 75 U/L (15-37) H 06/06/19 07:45 ALT 64 U/L (13-61) H 06/06/19 07:45 Alkaline Phosphatase 71 U/L (45-117) 06/06/19 07:45 Total Protein 6.7 g/dl (6.4-8.2) 06/06/19 07:45 Albumin 3.3 g/dl (3.4-5.0) L 06/06/19 07:45 Assessment: 06/07/19 09:50 withdrawal symptom Plan: continue detox methadone and librium regimen,elvaion of alt,ast probably for chronic alcoholism
[2019-06-07] MEDS ORDERED: METHADONE HCL 5 MG TABLET (FOR DETOX USE ONLY) PO ONE (10:00)
[2019-06-07] MEDS: PRENATAL VITAMINS W/ FOLIC ACID TABLET (FP) PO SCH (10:41)
[2019-06-07] MEDS: THIAMINE HCL 100 MG TABLET (FP) PO SCH (22:17)
[2019-06-07 23:06] VITALS: TEMP 97.9
[2019-06-08] MEDS ORDERED: chlordiazePOXIDE HCL 10 MG CAPSULE PO PRN
[2019-06-08] MEDS ORDERED: chlordiazePOXIDE HCL 10 MG CAPSULE PO SCH (05:00)
[2019-06-08] MEDS ORDERED: METHADONE HCL 10 MG TABLET (FOR DETOX USE ONLY) PO ONE (10:00)
[2019-06-08 10:14] VITALS: BP 120/70; PULSE 74
--- NOTE | 2019-06-08 10:35 | PN ---
[facility] Progress Note Note: pts' behavior became aggressive towards staff and security was called and pt was escorted off the unit. Pt was discharged and after care provided
--- NOTE | 2019-06-08 10:44 | DS ---
[facility] Detox Discharge Summary Admission Date: 06/05/19 Discharge Date: 06/08/19 - History Present History: Alcohol Dependence, Cannabis Dependence, Cocaine Dependence, MMTP - Physical Exam Results Vital Signs: Vital Signs Temperature 97.9 F 06/08/19 08:40 Pulse Rate 74 06/08/19 08:40 Respiratory Rate 18 06/08/19 08:40 Blood Pressure 120/70 06/08/19 08:40 O2 Sat by Pulse Oximetry (%) Pertinent Admission Physical Exam Findings: Vital Signs Temperature 97.9 F 06/08/19 08:40 Pulse Rate 74 06/08/19 08:40 Respiratory Rate 18 06/08/19 08:40 Blood Pressure 120/70 06/08/19 08:40 O2 Sat by Pulse Oximetry (%) Laboratory Tests 06/06/19 07:45 Sodium 141 Potassium 3.9 Chloride 108 H Carbon Dioxide 26 Anion Gap 7 L BUN 17.2 Creatinine 0.9 Est GFR (CKD-EPI)AfAm 109.50 Est GFR (CKD-EPI)NonAf 94.48 Random Glucose 97 Calcium 8.7 Total Bilirubin 0.7 AST 75 H ALT 64 H Alkaline Phosphatase 71 Total Protein 6.7 Albumin 3.3 L aaox3 ambulating no acute distress - Treatment Hospital Course: Detox Protocol Followed, Detoxed Safely, Responded well, Discharged Condition Good, Rehab Referral Accepted - Medication Discharge Medications: Ambulatory Orders NK [No Known Home Medication] 05/17/19 - Diagnosis (1) Methadone use disorder, mild, abuse Current Visit: Yes Status: Acute (2) Alcohol use disorder Current Visit: Yes Status: Chronic (3) Cannabis dependence Current Visit: Yes Status: Chronic (4) Cocaine dependence Current Visit: Yes Status: Chronic Qualifiers: Substance use status: uncomplicated Qualified Code(s): F14.20 - Cocaine dependence, uncomplicated (5) Alcohol dependence with withdrawal, uncomplicated Current Visit: No Status: Acute (6) Depressed affect Current Visit: No Status: Acute (7) Heroin abuse Current Visit: No Status: Acute (8) Leg pain Current Visit: No Status: Acute Qualifiers: Laterality: left Qualified Code(s): M79.605 - Pain in left leg (9) Opioid dependence with withdrawal Current Visit: No Status: Acute (10) UTI (urinary tract infection) Current Visit: No Status: Acute Qualifiers: Hematuria presence: without hematuria (11) Cannabis dependence, uncomplicated Current Visit: No Status: Chronic (12) Cocaine dependence, uncomplicated Current Visit: No Status: Chronic (13) Emphysema lung Current Visit: No Status: Chronic Qualifiers: Emphysema type: unspecified Qualified Code(s): J43.9 - Emphysema, unspecified (14) HCV (hepatitis C virus) Current Visit: No Status: Chronic Qualifiers: Viral hepatitis chronicity: chronic Hepatic coma status: without hepatic coma Qualified Code(s): B18.2 - Chronic viral hepatitis C (15) Non-compliance Current Visit: No Status: Chronic (16) Opioid use disorder Current Visit: No Status: Chronic (17) Homeless Current Visit: No Status: Suspected (18) Substance induced mood disorder Current Visit: No Status: Suspected - AMA Did Patient Leave Against Medical Advice: No
[2019-06-09] MEDS ORDERED: chlordiazePOXIDE HCL 10 MG CAPSULE PO ONE (05:00)
[2019-06-09] MEDS ORDERED: METHADONE HCL 5 MG TABLET (FOR DETOX USE ONLY) PO ONE (06:00)
== END 2019-06-08 09:35 | disposition home or self-care (01) | DRG 773 ==
LOC: YASAS 15:25 → UNDOADMIN 18:04 → Y3N 18:04 → Y6N 20:09
PROVIDERS: ADMIT Allergy & Immunology; ATTEND Allergy & Immunology
PROC: HZ2ZZZZ Detoxification Services for Substance Abuse Treatment (ICD-10-PCS; principal; 2019-06-05)
DX: F10.230 Alcohol dependence with withdrawal, uncomplicated (principal); F11.20 Opioid dependence, uncomplicated; F14.20 Cocaine dependence, uncomplicated; F12.20 Cannabis dependence, uncomplicated; F19.24 Other psychoactive substance dependence with psychoactive substance-induced mood disorder; J43.9 Emphysema, unspecified; B18.2 Chronic viral hepatitis C; M79.605 Pain in left leg; R45.89 Other symptoms and signs involving emotional state; Z87.440 Personal history of urinary (tract) infections; Z91.19 Patient's noncompliance with other medical treatment and regimen; Z59.0 Homelessness
CPT/HCPCS: 36415; 80053

== ENCOUNTER 2019-06-05 20:26 | Emergency (ER) | payer OTHER ==
[2019-06-05 20:33] VITALS: TEMP 98; BMI 35.8
--- NOTE | 2019-06-05 21:48 | PDOC ---
History of Present Illness - General Chief Complaint: Pain, Acute Stated Complaint: LEG PAIN Time Seen by Provider: 06/05/19 20:51 History Source: Patient Exam Limitations: No Limitations Past History - Travel Traveled outside of the country in the last 30 days: No Close contact w/someone who was outside of country & ill: No - Past Medical History Allergies/Adverse Reactions: Allergies Allergy/AdvReac Type Severity Reaction Status Date / Time No Known Drug Allergies Allergy Verified 06/05/19 20:30 pork derived (porcine) AdvReac Severe Vomiting Verified 06/05/19 20:30 Home Medications: Ambulatory Orders NK [No Known Home Medication] 05/17/19 Anemia: No Asthma: No Cancer: No Cardiac Disorders: No CVA: No COPD: Yes (EPHYSEMA) CHF: No Dementia: No Diabetes: No GI Disorders: No Disorders: No HTN: No Hypercholesterolemia: No Kidney Stones: No Liver Disease: No Seizures: No Thyroid Disease: No - Surgical History Abdominal Surgery: No Appendectomy: No Cardiac Surgery: No Cholecystectomy: No Lung Surgery: No Neurologic Surgery: No Orthopedic Surgery: No - Reproductive History Testicular Surgery: No - Psycho Social/Smoking Cessation Hx Smoking History: Never smoked Have you smoked in the past 12 months: No Information on smoking cessation initiated: No Hx Alcohol Use: Yes Drug/Substance Use Hx: No Substance Use Type: Alcohol, Cocaine, Heroin Hx Substance Use Treatment: Yes ([facility]/04/19 to 04/09/19) Review of Systems - Review of Systems Able to Perform ROS?: Yes Comments:: 06/05/19 23:01 CONSTITUTIONAL: Absent: fever, chills, diaphoresis, generalized weakness, malaise, loss of appetite MUSCULOSKELETAL: Present: L leg pain Absent: myalgia, arthralgia, joint swelling SKIN: Absent: rash, itching, pallor NEUROLOGIC: Absent: headache, focal weakness or paresthesias, dizziness, unsteady gait, seizure, mental status changes, bladder or bowel incontinence PSYCHIATRIC: Absent: anxiety, depression, suicidal or homicidal ideation, hallucinations. Is the patient limited Mongolian proficient: No *Physical Exam - Vital Signs Last Vital Signs Temp Pulse Resp BP Pulse Ox 98.0 F 56 L 20 105/81 97 06/05/19 20:30 06/05/19 20:30 06/05/19 20:30 06/05/19 20:30 06/05/19 20:30 - Physical Exam 06/05/19 23:05 GENERAL: The patient is awake, alert, and fully oriented, in no acute distress. HEAD: Normal with no signs of trauma. EYES: Pupils equal, round and reactive to light, extraocular movements intact, sclera anicteric, conjunctiva clear. EXTREMITIES: TTP of the anterior aspect of the L lower extremity with palpable hematoma. Normal range of motion, no edema. NEUROLOGICAL: Normal speech, normal gait. PSYCH: Normal mood, normal affect. SKIN: Warm, Dry, normal turgor, no rashes or lesions noted. ED Treatment Course - RADIOLOGY Radiology Studies Ordered: Category Date Time Status LEG TIB/FIB-LEFT [RAD] Stat Radiology 06/05/19 21:10 Ordered Medical Decision Making - Medical Decision Making 06/05/19 23:12 Patient is a 58-year-old male with past medical history of polysubstance abuse, depression, presents to the ER today for evaluation of a bump on his left leg. He was admitted to [facility] for rehab and was sent to have his leg evaluated. He states he fell last week and the leg hurts to touch. Denies numbness/tingling and weakness to the effected extremity. A/P: hematoma On exam there is tenderness palpation over the left anterior olson. No calf pain, no obvious bruising. X-ray shows no fractures. Likely a hematoma. Pt walking around the ER without limp Discharge back to [facility] with supportive therapy and orthopedic follow-up. I discussed the physical exam findings, ancillary test results and final diagnoses with the patient. I answered all of the patient's questions. The patient was satisfied with the care received and felt comfortable with the discharge plan and treatment plan. The Patient agrees to follow up with the primary care physician/specialist within 24-72 hours. Return precautions were given. Discharge - Discharge Information Problems reviewed: Yes Clinical Impression/Diagnosis: Leg pain Qualifiers: Laterality: left Qualified Code(s): M79.605 - Pain in left leg Condition: Stable Disposition: TRANSFER ACUTE CARE/OTHER HOSP - Admission No - Follow up/Referral Referrals: Avelino Montez MD [Staff Physician] - - Patient Discharge Instructions Patient Printed Discharge Instructions: DI for Hematoma (Bruise) Additional Instructions: You were evaluated for your leg pain today. Your x-ray did not show any fractures. The bump is most likely a bruise. You may apply warm packs to the area to help with pain. You may take Tylenol as needed for pain, 650 mg every 6 hours. Follow-up with orthopedics if your symptoms or not resolving. Return to the ER for any new or worsening symptoms. - Post Discharge Activity
--- NOTE | 2019-06-05 22:57 | PDOC ---
*Physical Exam - Vital Signs Last Vital Signs Temp Pulse Resp BP Pulse Ox 98.0 F 56 L 20 105/81 97 06/05/19 20:30 06/05/19 20:30 06/05/19 20:30 06/05/19 20:30 06/05/19 20:30 Medical Decision Making - Medical Decision Making 06/05/19 22:56 Case reviewed, agree with assesment and plan Discharge - Discharge Information Problems reviewed: Yes Clinical Impression/Diagnosis: Leg pain Qualifiers: Laterality: left Qualified Code(s): M79.605 - Pain in left leg Condition: Stable Disposition: TRANSFER ACUTE CARE/OTHER HOSP - Admission No - Follow up/Referral Referrals: Avelino Montez MD [Staff Physician] - - Patient Discharge Instructions Patient Printed Discharge Instructions: DI for Hematoma (Bruise) Additional Instructions: You were evaluated for your leg pain today. Your x-ray did not show any fractures. The bump is most likely a bruise. You may apply warm packs to the area to help with pain. You may take Tylenol as needed for pain, 650 mg every 6 hours. Follow-up with orthopedics if your symptoms or not resolving. Return to the ER for any new or worsening symptoms. - Post Discharge Activity
[2019-06-05 23:37] VITALS: BP 107/75; PULSE 64
== END 2019-06-05 23:35 | disposition short-term general hospital (02) ==
LOC: JER 20:26
DX: M79.662 Pain in left lower leg (principal); S80.12XA Contusion of left lower leg, initial encounter; W19.XXXA Unspecified fall, initial encounter; Y93.89 Activity, other specified; Y92.89 Other specified places as the place of occurrence of the external cause; Y99.8 Other external cause status; F19.20 Other psychoactive substance dependence, uncomplicated; F32.9 Major depressive disorder, single episode, unspecified; Z59.0 Homelessness
CPT/HCPCS: 73590-TC-LT-FY; 99283-25

== ENCOUNTER 2022-03-06 10:13 | Inpatient (IN) | payer OTHER ==
[2022-03-06 10:55] VITALS: BMI 24.3
[2022-03-06] MEDS ORDERED: LOPERAMIDE HCL 2 MG CAPSULE PO PRN (11:15)
[2022-03-06] MEDS ORDERED: POLYETHYLENE GLYCOL (HEALTHYLAX) 3350 17 GM PACKET PO PRN (11:15)
[2022-03-06] MEDS ORDERED: NALOXONE HCL (KLOXXADO) 8 MG SPRAY NS PRN (11:15)
[2022-03-06] MEDS ORDERED: MAGNESIUM HYDROX 2400MG/30ML ORAL SUSPENSION 30 ML CUP PO PRN (11:15)
[2022-03-06] MEDS ORDERED: MAG HYDROX/AL HYDROX/SIMETH 30 ML UNIT-DOSE CUP PO PRN (11:15)
[2022-03-06] MEDS ORDERED: NICOTINE 10 MG CARTRIDGE (INHALER) IH PRN (11:15)
[2022-03-06] MEDS ORDERED: NICOTINE POLACRILEX 2 MG GUM BC PRN (11:15)
[2022-03-06] MEDS ORDERED: BENZOCAINE/MENTHOL (CHLORASEPTIC ) LOZENGE MM PRN (11:15)
[2022-03-06] MEDS ORDERED: IBUPROFEN 400 MG TABLET (FP) PO PRN (11:15)
[2022-03-06] MEDS ORDERED: methaDONE HCL 10 MG TABLET (FOR DETOX USE ONLY) PO ONE (13:42)
[2022-03-06] MEDS ORDERED: diazePAM 5 MG TABLET PO PRN (13:43)
[2022-03-06] MEDS: ACETAMINOPHEN 325 MG TABLET (FP) PO PRN ×2 (14:01→22:23)
[2022-03-06 14:11] LABS: HEMATOCRIT 37.3 % (35.4-49); HEMOGLOBIN 11.8 GM/dL (11.7-16.9); MCH 27.3 pg (25.7-33.7); MCHC 31.8 g/dl (32.0-35.9); MEAN CELL VOLUME 85.9 fl (80-96); MEAN PLT VOLUME 8.8 fl (7.5-11.1); PLATELET COUNT 231 10^3/uL (134-434); RBC 4.34 M/mm3 (4.00-5.60); RDW 14.3 % (11.9-15.9); WHITE BLOOD COUNT 4.2 K/mm3 (4.0-10.0)
[2022-03-06 14:24] LABS: CALCIUM 8.8 mg/dL (8.5-10.1)
[2022-03-06 14:25] LABS: BLOOD UREA NITROGEN 11.2 mg/dL (7-18); CREATININE 0.9 mg/dL (0.55-1.3)
[2022-03-06 14:26] LABS: BILIRUBIN,TOTAL 0.2 mg/dL (0.2-1)
[2022-03-06] MEDS: MELATONIN 5 MG TABLETS PO SCH (22:20)
[2022-03-06] MEDS: THIAMINE HCL 100 MG TABLET (FP) PO SCH (22:20)
[2022-03-06] MEDS: hydrOXYzine PAMOATE 25 MG CAPSULE (FP) PO PRN (22:22)
[2022-03-07] MEDS: PRENATAL VITAMINS W/ FOLIC ACID TABLET (FP) PO SCH (10:07)
[2022-03-07] MEDS: cloNIDine HCL 0.1 MG TABLET PO PRN ×2 (17:53→22:14)
[2022-03-07] MEDS: hydrOXYzine PAMOATE 25 MG CAPSULE (FP) PO PRN ×2 (17:54→22:13)
[2022-03-07] MEDS: MELATONIN 5 MG TABLETS PO SCH (22:14)
[2022-03-07] MEDS: THIAMINE HCL 100 MG TABLET (FP) PO SCH (22:14)
[2022-03-08] MEDS ORDERED: methaDONE HCL 10 MG TABLET (FOR DETOX USE ONLY) PO ONE (10:00)
[2022-03-08] MEDS: PRENATAL VITAMINS W/ FOLIC ACID TABLET (FP) PO SCH (10:15)
[2022-03-08] MEDS: MELATONIN 5 MG TABLETS PO SCH (22:19)
[2022-03-08] MEDS: THIAMINE HCL 100 MG TABLET (FP) PO SCH (22:19)
[2022-03-09] MEDS: PRENATAL VITAMINS W/ FOLIC ACID TABLET (FP) PO SCH (10:07)
[2022-03-09] MEDS: MELATONIN 5 MG TABLETS PO SCH (22:14)
[2022-03-09] MEDS: THIAMINE HCL 100 MG TABLET (FP) PO SCH (22:15)
[2022-03-10] MEDS ORDERED: methaDONE HCL 10 MG TABLET (FOR DETOX USE ONLY) PO ONE (10:00)
[2022-03-10] MEDS: PRENATAL VITAMINS W/ FOLIC ACID TABLET (FP) PO SCH (10:17)
[2022-03-10] MEDS: THIAMINE HCL 100 MG TABLET (FP) PO SCH (22:37)
[2022-03-10] MEDS: MELATONIN 5 MG TABLETS PO SCH (22:37)
[2022-03-11 09:49] VITALS: RESP 18
[2022-03-11] MEDS: PRENATAL VITAMINS W/ FOLIC ACID TABLET (FP) PO SCH (10:09)
[2022-03-11 19:07] VITALS: BP 120/82; PULSE 67; TEMP 97.9
== END 2022-03-11 19:50 | disposition other institution (70) | DRG 773 ==
LOC: YASAS 10:13 → Y6N 11:51
PROVIDERS: ADMIT Allergy & Immunology; ATTEND Family Medicine Addiction Medicine
PROC: HZ2ZZZZ Detoxification Services for Substance Abuse Treatment (ICD-10-PCS; principal; 2022-03-06)
DX: F11.23 Opioid dependence with withdrawal (principal); F14.20 Cocaine dependence, uncomplicated; F12.20 Cannabis dependence, uncomplicated; F19.282 Other psychoactive substance dependence with psychoactive substance-induced sleep disorder; F39 Unspecified mood [affective] disorder; J44.9 Chronic obstructive pulmonary disease, unspecified; B18.2 Chronic viral hepatitis C; R76.11 Nonspecific reaction to tuberculin skin test without active tuberculosis; M54.50 Low back pain, unspecified; G89.29 Other chronic pain; Z87.891 Personal history of nicotine dependence; Z86.59 Personal history of other mental and behavioral disorders
CPT/HCPCS: 36415; 71046-TC-FY; 80053; 85027; 86593; 86780; C9803-CS; U0003; U0005

== ENCOUNTER 2022-03-11 19:59 | Inpatient (IN) | payer OTHER ==
[2022-03-11] MEDS ORDERED: POLYETHYLENE GLYCOL (HEALTHYLAX) 3350 17 GM PACKET PO PRN (21:47)
[2022-03-11] MEDS ORDERED: MAGNESIUM HYDROX 2400MG/30ML ORAL SUSPENSION 30 ML CUP PO PRN (21:47)
[2022-03-11] MEDS ORDERED: LOPERAMIDE HCL 2 MG CAPSULE PO PRN (21:47)
[2022-03-11] MEDS ORDERED: MAG HYDROX/AL HYDROX/SIMETH 30 ML UNIT-DOSE CUP PO PRN (21:47)
[2022-03-11] MEDS ORDERED: hydrOXYzine PAMOATE 25 MG CAPSULE (FP) PO PRN (21:47)
[2022-03-11] MEDS ORDERED: BENZOCAINE/MENTHOL (CHLORASEPTIC ) LOZENGE MM PRN (21:47)
[2022-03-11] MEDS ORDERED: ACETAMINOPHEN 325 MG TABLET (FP) PO PRN (21:47)
[2022-03-11] MEDS ORDERED: P-EPHED 60MG/TRIPROLIDI 2.5MG TABLET PO PRN (21:47)
[2022-03-11] MEDS ORDERED: IBUPROFEN 400 MG TABLET (FP) PO PRN (21:47)
[2022-03-11] MEDS ORDERED: guaiFENesin 200 MG/10 ML 10 ML UNIT-DOSE CUPS PO PRN (21:47)
[2022-03-11] MEDS: THIAMINE HCL 100 MG TABLET (FP) PO SCH (21:52)
[2022-03-11] MEDS: MELATONIN 5 MG TABLETS PO SCH (21:52)
[2022-03-12] MEDS: PRENATAL VITAMINS W/ FOLIC ACID TABLET (FP) PO SCH (10:00)
[2022-03-12] MEDS ORDERED: BUPRENORPHINE/NALOXONE 8 MG/2 MG FILM PACKET SL SCH (10:15)
[2022-03-12 16:02] LABS: HIV INTERPRETATION NEGATIVE (NEGATIVE)
[2022-03-12] MEDS: THIAMINE HCL 100 MG TABLET (FP) PO SCH (21:07)
[2022-03-12] MEDS: MELATONIN 5 MG TABLETS PO SCH (21:07)
[2022-03-13 07:01] VITALS: BP 136/84; PULSE 70; RESP 18; TEMP 97.8
[2022-03-13] MEDS: PRENATAL VITAMINS W/ FOLIC ACID TABLET (FP) PO SCH (09:55)
[2022-03-13] MEDS ORDERED: BUPRENORPHINE/NALOXONE 8 MG/2 MG FILM PACKET SL SCH (10:00)
[2022-03-13] MEDS ORDERED: FLU VACC QS2022-23(6MOS UP)/PF 60 MCG/0.5 ML SYRINGE IM ONE (12:00)
== END 2022-03-13 15:44 | disposition home or self-care (01) | DRG 772 ==
LOC: YASAS 19:59 → Y3W 20:07
PROVIDERS: ADMIT Allergy & Immunology; ATTEND Psychiatry & Neurology Pain Medicine
PROC: HZ42ZZZ Group Counseling for Substance Abuse Treatment, Cognitive-Behavioral (ICD-10-PCS; principal; 2022-03-11)
DX: F11.20 Opioid dependence, uncomplicated (principal); F14.20 Cocaine dependence, uncomplicated; F19.282 Other psychoactive substance dependence with psychoactive substance-induced sleep disorder; F41.9 Anxiety disorder, unspecified; F32.A Depression, unspecified; M54.50 Low back pain, unspecified; G89.29 Other chronic pain; Z87.891 Personal history of nicotine dependence; Z86.19 Personal history of other infectious and parasitic diseases; Z86.11 Personal history of tuberculosis
CPT/HCPCS: 36415; 87389; C9803-CS; G0008; Q2036; U0003; U0005